=== PATIENT | male | born 1955 | race Caucasian/White ===

== ENCOUNTER 2018-03-23 22:58 | Inpatient (IN) | payer MEDICARE ==
[~2018-03-23] VITALS: Ht 182.9 cm; Wt 109.1 kg
--- NOTE | ~2018-03-23 | MORECARE ---
CASE MANAGEMENT DISCHARGE SUMMARY PATIENT: KYARA GARCIA UNIT: [id number] ADM DATE: 03/23/18 AGE: 62 : 53 SEX: M ROOM/BED: D.2104 AUTHOR: ANUSHADOC PHYSICIAN: REFERRING PHYSICIAN: TONIA CALIX MD DATE OF SERVICE: 03/27/18 Discharge Plan Patient Name: KYARA GARCIA Facility: [facility]:[place] : 1955 Planned Disposition: Home Anticipated Discharge Date: 03/27/18 Discharge Date: Expected LOS: 4 Initial Reviewer: [email or web address] Initial Review Date: 03/25/2018 Generated: 03/27/18 12:18 pm Comments DCP- Discharge Planning Updated by [email or web address]: Silva Arambula on 03/25/18 7:[address] Patient Name: KYARA GARCIA Admission Status: ER Accout number: [id number] Admission Date: 03-23-2018 : 1955 Admission Diagnosis: Attending: TONIA CALIX Current LOS: 2 Anticipated DC Date: 03-27-2018 Planned Disposition: Home Primary Insurance: MEDICARE A & B Discharge Planning Comments: CM MET WITH PATIENT REGARDING D/C NEEDS AND PLANS. PATIENT STATED HE LIVES ALONE AND HIS FRIEND (JOSE ALEJANDRO RUCKER) HELPS HIM IF NEEDED AND WILL DRIVE HIM HOME AT DISCHARGE. PATIENT STATED THERE IS A RAMP TO ENTER HIS HOME AND NO STAIRS INSIDE. PATIENT STATED HE IS INDEPENDENT WITH HIS CARE AND HAS NO DME AT HOME. PATIENTS PCP IS DR. MANINDER AGARWAL IN [place] AND USES [facility] IN [place]. PATIENT REFUSED HOME HEALTH AT THIS TIME. CM WILL CONTINUE TO FOLLOW PATIENT WITH D/C NEEDS AND PLANS. IMM SERVED PCP DR. MANINDER AGARWAL ([place]) [facility] ([place]) JOSE ALEJANDRO RUCKER (FRIEND) [phone] Computer Education Teacher: Silva Arambula DCPIA - Discharge Planning Initial Assessment Updated by [email or web address]: Silva Arambula on 03/25/18 8:44 am * Is the patient Alert and Oriented? Yes * How many steps to enter\exit or inside your home? ramp * PCP DR. MANINDER AGARWAL ([place]) * Pharmacy [facility] ([place]) * Preadmission Environment Home Alone * ADLs Independent * Equipment None * List name and contact numbers for known caregivers / representatives who currently or will assist patient after discharge: JOSE ALEJANDRO RUCKER (FRIEND) [phone] * Verbal permission to speak to the caregivers and representatives has been obtained from the patient. Yes * Community resources currently utilized None * Additional services required to return to the preadmission environment? Yes * Can the patient safely return to the preadmission environment? Yes * Has this patient been hospitalized within the prior 30 days at any hospital? No Coverage Notice Reviewer: [id number] Leobardo Arambula Notice Issued Date-Time: 03/25/2018 7:46 Notice Type: IM Discharge Notice Notice Delivered To: Patient Relationship to Patient: Sanitation Officer Name: Delivery Method: HAND - Hand Delivered Eulalia Days: Prior Verbal Notification: Recipient Understood Notice: Yes Recipient Signature: Yes Med Rec Note Co-signed by Attending: Coverage Notice Comment: Last DP export: 03/25/18 7:49 a Patient Name: KYARA GARCIA Page [id number] at 1118 All edits/amendments must be made on the electronic document DICTATION DATE: 03/27/18 1117 TIN WORKER: SHERRY 03/27/18 1117 RPT#: [id number] DC DATE: STATUS: ADM IN [facility] [address] [place] [address] END OF REPORT
--- NOTE | ~2018-03-23 | HEMODYNAMI ---
PATIENT:KYARA GARCIA MEDICAL RECORD: [id number] : 53 LOCATION:[facility].2104 ADMISSION DATE: 03/23/18 Generatedon:03/25/201810:55 Patient name: KYARA GARCIA Patient #: [id number] SSN: : 1955 Date of study: 03/25/2018 Page: Of Hemodynamic Procedure Report Patient Data Patient Demographics Procedure consent was obtained First Name: KYARA Gender: Male Last Name: RADHA : 1955 Middle Initial: DENNIS Age: 62 year(s) Patient #: [id number] Race: Unknown Additional ID: [id number] Contact details Address: [address] [place] [address] State: [place] City: [place] Zip code: [address] Past Medical History Allergies Allergen Reaction Date Comments Reported Bactrim 03/25/2018 Admission Admission Data Admission Date: 03/23/2018 Admission Time: 23:35 Room #: D2104 Height (in.): 71.65 BSA: 2.21 (m2) Height (cm.): 182 BMI: 30.19 (kg/m2) Weight (lbs.): 220.46 Weight (kg.): 100 Procedure Procedure Types Cath Procedure Diagnostic Procedure Sedation Charges Moderate Sedation up to 15 minutes PCI Procedure Coronary Stent Coronary Stent Initial Coronary Stent Additional Procedure Description Procedure Date Procedure Date: 03/25/2018 Procedure Start Time: 10:37 Procedure End Time: 10:54 Procedure Staff Name Function Diego Olivares MD Performing Physician Alexa Grigsby RT Monitor Rosalba Chan RN Nurse Salomón Ortega RT Scrub Procedure Data Cath Procedure Fluoroscopy Diagnostic fluoroscopy Total fluoroscopy Time: 4.1 time: 4.1 min min Diagnostic fluoroscopy Total fluoroscopy dose: 478 dose: 478 mGy mGy Contrast Material Contrast Material Type Amount (ml) Isovue 300 109 Entry Location Entry Primary Successful Side Size Upsize Upsize Entry Closure Succes sful Closure Location (Fr) 1 (Fr) 2 (Fr) Remarks Device Remarks Femoral Right 6 Fr Exoseal artery Short Estimated blood loss: 10 ml Procedure Complications No complications Procedure Medications Medication Administration Route Dosage Oxygen etCO2 Nasal cannula 2 l/min Lidocaine 2% added to field 20 Heparin Flush Bag added to field 2 bags (1000units/500ml NS) 0.9% NaCl I.V. 100 ml/hr Versed I.V. 1 mg Fentanyl I.V. 50 mcg Heparin Bolus I.V. 4000 units Versed I.V. 1 mg Fentanyl I.V. 50 mcg Fentanyl I.V. 25 mcg Hemodynamics Rest BSA: 2.21 (m2) O2 Consumption: Estimated: 262.65 (ml/min) O2 Consumption indexed : Estimated:118.85 (ml/min/m) Heart Rate: 75 (bpm) Snapshots Pre Cath Intra NCS Post Cath Vital Signs Time Heart Resp SPO2 etCO2 NIBP (mmHg) Rhythm Pain Sedation Rate (ipm) (%) (mmHg) Status Level (bpm) 10:16:29 72 15 97 29.2 138/78(116) NSR 0 (11) 10(A) , No pain 10:20:55 72 19 94 28.5 134/73(115) NSR 0 (11) 10(A) , No pain 10:25:21 71 17 99 24 134/69(106) NSR 0 (11) 10(A) , No pain 10:29:50 66 15 98 21.7 126/68(95) NSR 0 (11) 10(A) , No pain 10:34:12 67 15 96 18 131/67(98) NSR 0 (11) 10(A) , No pain 10:38:32 66 12 97 21 127/74(95) NSR 0 (11) 9(A) , No pain 10:42:54 68 13 96 29 127/71(101) NSR 0 (11) 9(A) , No pain 10:47:12 68 13 97 27 124/81(106) NSR 0 (11) 9(A) , No pain 10:51:28 68 15 98 17.2 138/84(119) NSR 0 (11) 10(A) , No pain Medications Time Medication Route Dose Verified Delivered Reason Notes Effectiveness by by 10:24:49 Oxygen etCO2 2 Diego Navarrete used for Nasal l/min Marshall Chan repack room worker cannula 10:24:57 Lidocaine 2% added 20ml Diego Cortez for local to vial Marshall Olivares MD anesthetic field 10:25:03 Heparin Flush added 2 Diegodivya Cortez used for Bag to bags Marshall Olivares MD procedure (1000units/500ml field NS) 10:25:13 0.9% NaCl I.V. 100 Diegodivya Navarrete Per physician ml/hr Marshall Chan RN 10:34:58 Versed I.V. 1 mg Diego Hoganie for sedation Marshall Chan RN 10:35:03 Fentanyl I.V. 50 Diego Buffie for sedation mcg Marshall Chan RN 10:38:30 Heparin Bolus I.V. 4000 Diego Buffie for VERIF IED units Marshall Chan RN anticoagulation WITH DR OLIVARES 10:41:46 Versed I.V. 1 mg Diego Buffie for sedation Marshall Chan RN 10:41:50 Fentanyl I.V. 50 Diego Hoganie for sedation mcg Marshall Chan RN 10:45:19 Fentanyl I.V. 25 Diego Hoganie for sedation mcg Marshall Chan RN Procedure Log Time Note 10:00:07 Rosalba Chan RN sent for patient. Start room use. 10:02:44 Patient Height : 71.65 inches 10:02:44 Patient Weight : 220.46 lbs 10:03:50 Signed procedure consent form obtained from patient. 10:03:53 Diagnostic Cath status Elective 10:03:54 Time tracking: Regular hours (M-F 7:00 - 5:00) 10:04:02 Plan of Care:Hemodynamics will remain stable., Cardiac rhythm will remain stable., Comfort level will be maintained., Respiratory function will remain adequate., Patient/ family verbilizes understanding of procedure., Procedure tolerated without complication., Recovers from procedure without complications.. 10:09:50 Patient received from Med II to CCL 3 Alert and oriented. Tansferred to table in Supine position. 10:09:51 Warm blankets applied, and ari hugger turned on for patient comfort. 10:09:52 Correct patient and procedure confirmed by team. 10:09:52 ECG and BP/O2 sat monitors applied to patient. 10:15:10 Vital chart was started 10:17:43 Baseline sample Acquired. 10:17:47 Rhythm: sinus rhythm 10:17:48 Full Disclosure recording started 10:17:58 H&P Date Dictated: 03/23/2018 Within 30 days and on chart.. 10:17:59 Pre-procedure instructions explained to patient. 10:17:59 Pre-op teaching completed and patient verbalized understanding. 10:18:04 Family in patients room. 10:18:06 Patient NPO since Midnight. 10:18:11 Patient allergic to Bactrim 10:18:14 Is patient on blood thinner?Yes 10:18:16 ACC The patient was administered the following blood thiners within the last 24 hours: ACCPlavix 10:18:22 Patient diabetic? No. 10:18:24 Previous problem with sedation/anesthesia? No ? 10:18:25 Snore? Yes 10:18:27 Sleep apnea? Yes 10:18:28 Deviated septum? No 10:18:29 Opens mouth fully? Yes 10:18:30 Sticks out tongue? Yes 10:18:34 Airway obstruction? Yes COPD 10:18:38 Dentures? Yes TIGHT 10:18:41 Pre procedure: right dorsailis pedis pulse 2+ Normal; easily identifiable; not easily obliterated 10:18:51 IV patent on arrival in left forearm with 0.9% NaCl at [facility]. 10:19:10 Lab results completed and on chart. 10:19:14 Right groin area was prepped with chlora-prep and draped in sterile fashion 10:19:15 Alarms reviewed by R. N. 10:19:15 Sharps counted by scrub and verified by R.N. 10:23:08 Use device set CATH PACK 10:23:10 ACIST Syringe (55532) opened to sterile field. 10:23:10 ACIST Hand Control (07322) opened to sterile field. 10:23:11 ACIST Manifold (49060) opened to sterile field. 10:23:11 Medline Cath Pack ([id number]) opened to sterile field. 10:23:11 Bag Decanter (2002S) opened to sterile field. 10:23:12 DIAGNOSTIC WIRE .035 260cm J wire (593880) opened to sterile field. 10:23:29 CHOICE PT Extra Support 182cm wire ([id number]) opened to sterile field. 10:23:30 SHEATH 6FR [place] (VRC530) opened to sterile field. 10:23:30 INFLATOR Nicolas Ray (SV8238) opened to sterile field. 10:24:49 Oxygen 2 l/min etCO2 Nasal cannula was administered by Rosalba Chan RN; used for procedure; 10:24:57 Lidocaine 2% 20ml vial added to field was administered by Diego Olivares MD; for local anesthetic; 10:25:03 Heparin Flush Bag (1000units/500ml NS) 2 bags added to field was administered by Diego Olivares MD; used for procedure; 10:25:13 0.9% NaCl 100 ml/hr I.V. was administered by Rosalba Cahn RN; Per physician; 10:31:17 Zero performed for pressure channel P1 10:34:12 --------ALL STOP TIME OUT------ 10:34:12 Final Timeout: patient, procedure, and site verified with staff and physician. All members of the team are in agreement. 10:34:14 Right groin site verified by team. 10:34:16 Physical assessment completed. ASA score P 2 - A patient with mild systemic disease as per Diego Olivares MD. 10:34:21 Sedation plan: IV Moderate Sedation Medication:Versed, Fentanyl 10:34:58 Versed 1 mg I.V. was administered by Rosalba Chan RN; for sedation; 10:35:03 Fentanyl 50 mcg I.V. was administered by Rosalba Chan RN; for sedation; 10:37:21 Procedure started. 10:37:30 Local anesthetic to right femoral artery with Lidocaine 2% by Diego Olivares MD.INITIAL ACCESS ONLY 10:37:38 GUIDE 6FR XBLAD 4.0 catheter ([id number]) opened to sterile field. 10:38:07 A 6 Fr Short sheath was inserted into the Right Femoral artery 10:38:30 Heparin Bolus 4000 units I.V. was administered by Rosalba Chan RN; for anticoagulation; VERIFIED WITH DR OLIVARES 10:38:34 6 Fr XBLAD 4 guide catheter was inserted over the wire 10:39:29 CHOICE ES 182 wire advanced. 10:39:56 Wire advanced across lesion. 10:41:00 Place stent Inflation Number: 1 A INTEGRITY RX 4.0 x 15 stent ([id number]) was prepped and advanced across the Dist CX. The stent was deployed at 13 KEVIN for 0:10 (min:sec). 10:41:09 Stent catheter was removed intact over wire. 10:41:46 Versed 1 mg I.V. was administered by Rosalba Chan RN; for sedation; 10:41:50 Fentanyl 50 mcg I.V. was administered by Rosalba Chan RN; for sedation; 10:42:19 Wire removed. 10:42:21 Guide catheter removed. 10:42:25 GUIDE 6FR XBLAD 3.5 catheter ([id number]) opened to sterile field. 10:43:02 6 Fr XBLAD 3.5 guide catheter was inserted over the wire 10:44:35 CHOICE ES 182 wire advanced. 10:44:37 Wire advanced across lesion. 10:45:19 Fentanyl 25 mcg I.V. was administered by Rosalba Chan RN; for sedation; 10:46:42 Place stent Inflation Number: 1 A ROCIO RX 3.0 x 26 stent ([id number]) was prepped and advanced across the Mid LAD. The stent was deployed at 17 KEVIN for 0:10 (min:sec). 10:47:20 Inflation number: 2 The stent balloon was then re-inflated across the Mid LAD to 23 KEVIN for 0:10 (min:sec). 10:47:29 Stent catheter was removed intact over wire. 10:48:48 Place stent Inflation Number: 3 A ROCIO RX 2.75 x 18 stent ([id number]) was prepped and advanced across the Mid LAD. The stent was deployed at 17 KEVIN for 0:10 (min:sec). 10:48:58 Stent catheter was removed intact over wire. 10:48:58 Wire removed. 10:48:59 Guide catheter removed. 10:49:07 EXOSEAL 6Fr (EX600) opened to sterile field. 10:49:16 Sheath removed intact; hemostasis achieved with Exoseal to the Right Femoral artery. 10:50:01 Procedure ended.(Physican Out) 10:51:04 Fluoroscopy time 04.10 minutes. 10:51:11 Flurop Dose total: 478 10:51:11 Fluoroscopy dose: 478 mGy 10:51:19 Contrast amount:Isovue 300 109ml. 10:51:21 Sharps counted by scrub and verified by R.N. 10:51:24 Post-op/insertion site Right Femoral artery dressed using a 4 x 4 and Tegaderm. 10:51:27 Post right femoral artery:stable, soft, clean and dry 10:51:30 Post-procedure physical assessment completed. ASA score P 2 - A patient with mild systemic disease as per Diego Olivares MD. 10:51:33 Post procedure rhythm: unchanged. 10:51:35 Estimated blood loss: 10 ml 10:51:37 Post procedure instruction explained to patient.Patient verbalizes understanding. 10:51:37 Patient needs reinforcement of post procedure teaching. 10:52:01 Procedure type changed to Cath procedure, Diagnostic procedure, Sedation Charges, Moderate Sedation up to 15 minutes, PCI procedure, Coronary Stent, Coronary Stent Initial, Coronary Stent Additional 10:53:59 Procedure and supply charges have been captured, reviewed, submitted and are correct. 10:54:02 Procedure Complication : No complications 10:54:04 Vital chart was stopped 10:54:04 See physician's report for complete and final results. 10:54:08 Report given to PCU. 10:54:10 Patient transfered to PCU with Bed. 10:54:12 Procedure ended. 10:54:12 Full Disclosure recording stopped 10:54:16 End room use (Document Last) Intervention Summary Intervention Notes Time ActionType Lesion and Equipment Used Action# Pressure Duration Attributes 10:41:00 Place stent Dist CX INTEGRITY RX 1 13 00:10 4.0 x 15 stent ([id number]) 10:46:42 Place stent Mid LAD ROCIO RX 3.0 x 1 17 00:10 26 stent ([id number]) 10:47:20 Reinflate Mid LAD ROCIO RX 3.0 x 2 23 00:10 stent 26 stent balloon ([id number]) 10:48:48 Place stent Mid LAD ROCIO RX 2.75 x 3 17 00:10 18 stent ([id number]) Device Usage Item Name Manufacture Quantity Catalog Number Hospital Part Current M inimal Lot# / Charge Number Stock Stock Serial# Code ACIST Syringe Acist 1 96988 556620 719021 527110 2 0 (85837) Medical Systems Inc ACIST Hand Acist 1 73773 164993 384715 662584 5 Control Medical (14195) Systems Inc ACIST Manifold Acist 1 29872 357397 447734 863499 5 (75599) Medical Systems Inc Medline Cath Medline 1 [id number] 789130 36245 881547 5 Pack ([id number]) Bag Decanter Microtek 1 2001S 986694 24346 112356 5 (2001S) Medical Inc. DIAGNOSTIC St [place] 1 770546 013352 204269 202583 3 0 WIRE .035 260cm J wire (859819) CHOICE PT [place] 1 [id number] 248360 521064 988041 5 Extra Support Scientific 182cm wire ([id number]) SHEATH 6FR Terumo 1 MYJ565 024784 016870 578069 4 0 [place] (RAY546) INFLATOR Merit Merit 1 TA8963 089333 617648 219965 1 5 Veritext (NI1085) GUIDE 6FR Cardinal 1 [id number] 742112 360361 519328 3 XBLAD 4.0 Health catheter (98921007) INTEGRITY RX Medtronic 1 [id number] 484086 682486 279496 5 [id number] 4.0 x 15 stent ([id number]) GUIDE 6FR Cardinal 1 [id number] 076965 507987 271479 1 0 XBLAD 3.5 Health catheter ([id number]) ROCIO RX 3.0 x Medtronic 1 [id number] 727102 8825393 284757 5 [id number] 26 stent ([id number]) ROCIO RX 2.75 x Medtronic 1 [id number] 812095 2656124 084353 5 [id number] 18 stent ([id number]) EXOSEAL 6Fr Cardinal 1 EX600 765341 189158 353738 1 0 (EX600) Health Signature Audit [place] Stage Time Signature Unsigned Intra-Procedure 03/25/2018 Alexa Grigsby 10:55:12 AM RT(R) Signatures Monitor : Alexa Grigsby Signature : RT Date : Time : [place] [id number] [place] [address]
--- NOTE | ~2018-03-23 | HEMODYNAMI ---
PATIENT:KYARA GARCIA MEDICAL RECORD: [id number] : 53 LOCATION:[facility] [id number] ADMISSION DATE: 03/23/18 Generatedon:03/24/201815:54 Patient name: KYARA GARCIA Patient #: [id number] SSN: : 1955 Date of study: 03/24/2018 Page: Of Hemodynamic Procedure Report Patient Data Patient Demographics Procedure consent was obtained First Name: KYARA Gender: Male Last Name: RADHA : 1955 Middle Initial: DENNIS Age: 62 year(s) Patient #: [id number] Race: Unknown Additional ID: [id number] Contact details Address: [address] [place] [address] State: [place] City: [place] Zip code: [address] Past Medical History Allergies: No known allergies Admission Admission Data Admission Date: 03/23/2018 Admission Time: 23:35 Room #: D.2104 Height (in.): 71.65 BSA: 2.21 (m2) Height (cm.): 182 BMI: 30.19 (kg/m2) Weight (lbs.): 220.46 Weight (kg.): 100 Procedure Procedure Types Cath Procedure Diagnostic Procedure [facility] w/Coronaries PCI Procedure Coronary Stent Coronary Stent Initial Procedure Description Procedure Date Procedure Date: 03/24/2018 Procedure Start Time: 15:42 Procedure End Time: 15:53 Procedure Staff Name Function Diego Olivares MD Performing Physician Maria G Jimenes RT Monitor Rosalba Chan RN Nurse Constanza Fuller RT Scrub Procedure Data Cath Procedure Fluoroscopy Diagnostic fluoroscopy Total fluoroscopy Time: 2.4 time: 2.4 min min Diagnostic fluoroscopy Total fluoroscopy dose: 749 dose: 749 mGy mGy Contrast Material Contrast Material Type Amount (ml) Isovue 300 69 Entry Location Entry Primary Successful Side Size Upsize Upsize Entry Closure Hodge ccessful Closure Location (Fr) 1 (Fr) 2 (Fr) Remarks Device Remarks Radial Right 6 Fr Mechanical artery Short Compression Estimated blood loss: 10 ml Diagnostic catheters Device Type Used For End Catheter Placement DIAGNOSTIC Dickinson 110cm 5 Procedure Fr catheter ([id number]) Procedure Complications No complications Procedure Medications Medication Administration Route Dosage Oxygen etCO2 Nasal cannula 2 l/min Lidocaine 2% added to field 20 Heparin Flush Bag added to field 2 bags (1000units/500ml NS) 0.9% NaCl I.V. 100 ml/hr Radial Cocktail added to field 1 syringe (Verapomil 2mg/Nitro 400mcg/Heparin 1500units) Radial Cocktail I.A. 1 syringe (Verapomil 2mg/Nitro 400mcg/Heparin 1500units) Heparin Bolus I.V. 4000 units Versed I.V. 1 mg Fentanyl I.V. 50 mcg Hemodynamics Rest BSA: 2.21 (m2) O2 Consumption: Estimated: 259.03 (ml/min) O2 Consumption indexed : Estimated:117.21 (ml/min/m) Heart Rate: 71 (bpm) Pressure Samples Time Site Value (mmHg) Purpose Heart Use Rate(bpm) 15:44 LV 126/82,96 Snapshot 71 15:44 AO 131/72(95) Pullback 69 15:44 LV 143/14,24 Pullback 69 Gradients Valve Time Site 1 Site 2 Mean SEP/DFP Peak To Heart Use (mmHg) (sec/min) Peak Rate (mmHg) (bpm) Aortic 15:44 LV AO 5 18 12 69 143/14,24 131/72(95) Calculations Valve P-P Mean Valve Index Valve Source Name Gradient Area Flow (cm2) Aortic 12 5 12 5 Snapshots Pre Cath Intra NCS Post Cath Vital Signs Time Heart Resp SPO2 etCO2 NIBP (mmHg) Rhythm Pain Sedation Rate (ipm) (%) (mmHg) Status Level (bpm) 15:23:42 71 22 97 25.2 158/89(128) NSR 0 (11) 10(A) , No pain 15:27:59 67 20 96 26.7 151/88(124) NSR 0 (11) 10(A) , No pain 15:32:21 67 17 98 33.4 156/82(131) NSR 0 (11) 10(A) , No pain 15:36:39 67 11 95 27.4 146/85(118) NSR 0 (11) 10(A) , No pain 15:40:59 67 10 94 25.9 149/86(121) NSR 0 (11) 9(A) , No pain 15:45:15 67 12 92 26.7 144/83(111) NSR 0 (11) 9(A) , No pain 15:49:33 67 11 93 28.9 146/86(114) NSR 0 (11) 10(A) , No pain Medications Time Medication Route Dose Verified Delivered Reason Not es Effectiveness by by 15:25:52 Oxygen etCO2 2 l/min Diego Navarrete used for Nasal Marshall Chan RN procedure cannula 15:25:59 Lidocaine 2% added 20ml Diego Cortez for local to vial Marshall Olivares MD anesthetic field 15:26:06 Heparin Flush added 2 bags Diego Cortez used for Bag to Marshall Olivares MD procedure (1000units/500ml field NS) 15:26:15 0.9% NaCl I.V. 100 Diego Navarrete Per physician ml/hr Marshall Chan RN 15:29:10 Radial Cocktail added 1 Diego Navarrete used for (Verapomil to syringe Marshall Chan RN procedure 2mg/Nitro field 400mcg/Heparin 1500units) 15:44:08 Radial Cocktail I.A. 1 Diego Cortez for (Verapomil syringe Marshall Olivares MD vasodilation 2mg/Nitro 400mcg/Heparin 1500units) 15:47:46 Heparin Bolus I.V. 4000 Diego Navarrete for units Marshall Chan RN anticoagulation 15:49:32 Versed I.V. 1 mg Diego Navarrete for sedation Marshall Chan RN 15:49:51 Fentanyl I.V. 50 mcg Diego Navarrete for sedation Marshall Chan RN Procedure Log Time Note 15:10:19 Patient Height : 71.65 inches 15:10:23 Patient Weight : 220.46 lbs 15:11:02 Diagnostic Cath status Elective 15:11:04 Rosalba Chan RN sent for patient. Start room use. 15:11:06 Time tracking: Regular hours (M-F 7:00 - 5:00) 15:11:26 Plan of Care:Hemodynamics will remain stable., Cardiac rhythm will remain stable., Comfort level will be maintained., Respiratory function will remain adequate., Patient/ family verbilizes understanding of procedure., Procedure tolerated without complication., Recovers from procedure without complications.. 15:11:32 Patient received from Med II to CCL 2 Alert and oriented. Tansferred to table in Supine position. 15:11:33 Warm blankets applied, and ari hugger turned on for patient comfort. 15:11:33 Correct patient and procedure confirmed by team. 15:11:35 Signed procedure consent form obtained from patient. 15:11:54 H&P Date Dictated: 03/23/2018 Within 30 days and on chart., H&P Addendum completed by physician on day of procedure. (MUST COMPLETE FOR ALL OUTPATIENTS). 15:12:00 Family in patients room. 15:12:01 Patient NPO since Midnight. 15:12:14 Patient allergic to No known allergies 15:12:16 Is the patient allergic to Iodine/contrast media? No. 15:17:00 ECG and BP/O2 sat monitors applied to patient. 15:17:16 Is patient on blood thinner?Yes 15:17:18 Patient diabetic? No. 15:17:22 Snore? Yes 15:17:24 Sleep apnea? No 15:17:29 Airway obstruction? Yes COPD 15:17:39 Dentures? No out 15:17:44 Patient pain scale 0/10 ?. 15:18:00 IV patent on arrival in left wrist with 0.9% NaCl at O. 15:18:07 Lab results completed and on chart. 15:18:14 Right Radial & Right Groin area was prepped with chlora-prep and draped in sterile fashion 15:18:17 Alarms reviewed by R. N. 15:18:18 Sharps counted by scrub and verified by R.N. 15:18:19 Physician paged 15:22:32 Vital chart was started 15:22:40 Baseline sample Acquired. 15:22:44 Rhythm: sinus rhythm 15:22:47 Full Disclosure recording started 15:25:52 Oxygen 2 l/min etCO2 Nasal cannula was administered by Rosalba Chan RN; used for procedure; 15:25:59 Lidocaine 2% 20ml vial added to field was administered by Diego Olivares MD; for local anesthetic; 15:26:06 Heparin Flush Bag (1000units/500ml NS) 2 bags added to field was administered by Diego Olivares MD; used for procedure; 15:26:15 0.9% NaCl 100 ml/hr I.V. was administered by Rosalba Chan RN; Per physician; 15:29:10 Radial Cocktail (Verapomil 2mg/Nitro 400mcg/Heparin 1500units) 1 syringe added to field was administered by Rosalba Chan RN; used for procedure; 15:40:22 Physician arrived 15:40:23 --------ALL STOP TIME OUT------ 15:40:25 Final Timeout: patient, procedure, and site verified with staff and physician. All members of the team are in agreement. 15:40:47 Right Radial & Right Groin site verified by team. 15:40:52 Physical assessment completed. ASA score P 2 - A patient with mild systemic disease as per Diego Olivares MD. 15:40:56 Sedation plan: IV Moderate Sedation Medication:Versed, Fentanyl 15:41:19 Use device set Radial Dx or PCI 15:41:21 ACIST Syringe (10778) opened to sterile field. 15:41:21 Medline Cath Pack ([id number]) opened to sterile field. 15:41:22 Bag Decanter (2002S) opened to sterile field. 15:41:22 DIAGNOSTIC WIRE .035 260cm J wire (087485) opened to sterile field. 15:41:23 ACIST Hand Control (18714) opened to sterile field. 15:41:23 ACIST Manifold (21676) opened to sterile field. 15:41:24 Tegaderm 4 x 4 (1626W) opened to sterile field. 15:41:27 MBrace Wrist Support (896943136) opened to sterile field. 15:41:32 NEEDLE Cook 21G 4cm Radial (P96552) opened to sterile field. 15:41:38 SHEATH 6Fr Prelude Radial ([id number]) opened to sterile field. 15:41:42 Procedure started. 15:42:16 Local anesthetic to right radial artery with Lidocaine 2% by Diego Olivares MD.INITIAL ACCESS ONLY 15:42:47 A 6 Fr Short sheath was inserted into the Right Radial artery 15:43:28 A DIAGNOSTIC Dickinson 110cm 5 Fr catheter (191460) was advanced over the wire and used for Procedure. 15:43:37 LV angiography performed. 15:44:08 Radial Cocktail (Verapomil 2mg/Nitro 400mcg/Heparin 1500units) 1 syringe I.A. was administered by Diego Olivares MD; for vasodilation; 15:44:42 EF : 20 % 15:44:50 LCA angiography performed. 15:45:19 RCA angiography performed. 15:46:56 Catheter removed. 15:46:59 Proceeding to intervention. 15:47:06 6 Fr ar2sh guide catheter was inserted over the wire 15:47:18 choice ex wire advanced. 15:47:30 Wire advanced across lesion. 15:47:37 INFLATOR Merit BasixCompak (BO7007) opened to sterile field. 15:47:38 CHOICE PT Extra Support 182cm wire ([id number]) opened to sterile field. 15:47:40 GUIDE 6FR AR 2.0 SH catheter ([id number]) opened to sterile field. 15:47:46 Heparin Bolus 4000 units I.V. was administered by Rosalba Chan RN; for anticoagulation; 15:49:09 Place stent Inflation Number: 1 A ROCIO RX 2.25 x 15 stent ([id number]) was prepped and advanced across the Mid RCA. The stent was deployed at 13 KEVIN for 0:08 (min:sec). 15:49:32 Versed 1 mg I.V. was administered by Rosalba Chan RN; for sedation; 15:49:43 TR BAND Large ([id number]) opened to sterile field. 15:49:49 Wire removed. 15:49:51 Fentanyl 50 mcg I.V. was administered by Rosalba Chan RN; for sedation; 15:50:30 Guide catheter removed. 15:50:41 Sheath removed intact; hemostasis achieved with Mechanical Compression to the Right Radial artery. 15:50:44 Procedure ended.(Physican Out) 15:51:04 Fluoroscopy time 02.40 minutes. 15:51:08 Fluoroscopy dose: 749 mGy 15:51:08 Flurop Dose total: 749 15:51:11 Contrast amount:Isovue 300 69ml. 15:51:13 Sharps counted by scrub and verified by R.N. 15:51:16 TR band inflated with 13cc of air. 15:51:17 Insertion/operative site no bleeding no hematoma. 15:51:20 Post Procedure Pulses reassessed and unchanged 15:51:24 Post-procedure physical assessment completed. ASA score P 2 - A patient with mild systemic disease as per Diego Olivares MD. 15:51:27 Post procedure rhythm: unchanged. 15:51:37 Estimated blood loss: 10 ml 15:51:40 Post procedure instruction explained to patient.Patient verbalizes understanding. 15:51:56 Procedure type changed to Cath procedure, Diagnostic procedure, LHC, C w/Coronaries, PCI procedure, Coronary Stent, Coronary Stent Initial 15:52:25 Procedure and supply charges have been captured, reviewed, submitted and are correct. 15:52:35 Procedure Complication : No complications 15:52:42 Vital chart was stopped 15:52:50 See physician's report for complete and final results. 15:53:08 Report given to [facility]. 15:53:13 Patient transfered to [facility] with Bed. 15:53:16 Procedure ended. 15:53:16 Full Disclosure recording stopped 15:53:19 End room use (Document Last) Intervention Summary Intervention Notes Time ActionType Lesion and Equipment Used Action# Pressure Duration Attributes 15:49:09 Place stent Mid RCA ROCIO RX 2.25 x 1 13 00:08 15 stent ([id number]) Device Usage Item Name Manufacture Quantity Catalog Number Hospital Part Current Minimal Lot# / Charge Number Stock Stock Serial# Code ACIST Syringe Acist 1 90172 525703 881008 032790 20 (79554) Medical Systems Inc Medline Cath Medline 1 [id number] 075445 99106 295319 5 Pack ([id number]) Bag Decanter Microtek 1 2001S 717466 29788 622496 5 (2001S) Medical Inc. DIAGNOSTIC WIRE [place] 1 391648 856154 260045 805447 30 .035 260cm J wire (173079) ACIST Hand Acist 1 09940 006337 985469 592677 5 Control (25172) Medical Systems Inc ACIST Manifold Acist 1 90489 544025 525621 456991 5 (97267) Medical Systems Inc Tegaderm 4 x 4 3M 1 1626W 338954 593104 284266 5 (1626W) MBrace Wrist Advanced 1 140-0250-00 853538 28924 557448 5 Support Vascular ([id number]) Dynamics NEEDLE Cook 21G Shyp Medical 1 Y87812 168596 413120 643455 5 4cm Radial (P86887) SHEATH 6Fr Merit 1 [id number] 001972 145183 369912 5 Prelude Radial Medical ([id number]) DIAGNOSTIC Terumo 1 40-1563 744031 308153 353473 5 Dickinson 110cm 5 Fr catheter (908808) INFLATOR Merit Merit 1 AA0599 803815 927422 387462 15 [facility] (IJ0010) CHOICE PT Extra [place] 1 [id number] 790723 952525 522574 5 Support 182cm Scientific wire ([id number]) GUIDE 6FR AR Medtronic 1 [id number] 489745 21141 168321 1 2.0 SH catheter ([id number]) ROCIO RX 2.25 x Medtronic 1 [id number] 185594 2321494 635221 5 [id number] 15 stent ([id number]) TR BAND Large Terumo 1 [id number] 826854 091607 584533 40 ([id number]) Signature Audit [place] Stage Time Signature Unsigned Intra-Procedure 03/24/2018 Maria G Jimenes 3:54:38 PM RT(R) Signatures Monitor : Maria G Jimenes Signature : RT Date : Time : [place] [address] [place] [address]
--- NOTE | ~2018-03-23 | MORECARE ---
CASE MANAGEMENT DISCHARGE SUMMARY PATIENT: KYARA GARCIA UNIT: [id number] ADM DATE: 03/23/18 AGE: 62 : 54 SEX: M ROOM/BED: D.2104 AUTHOR: ANUSHA,DOC PHYSICIAN: REFERRING PHYSICIAN: TONIA CALIX MD DATE OF SERVICE: 03/25/18 Discharge Plan Patient Name: KYARA GARCIA Facility: [facility]:[place] : 1955 Planned Disposition: Home Anticipated Discharge Date: 03/27/18 Discharge Date: Expected LOS: 4 Initial Reviewer: [email or web address] Initial Review Date: 03/25/2018 Generated: 03/25/18 9:49 am Comments DCP- Discharge Planning Updated by [email or web address]: Silva Arambula on 03/25/18 7:[address] Patient Name: KYARA GARCIA Admission Status: ER Accout number: [id number] Admission Date: 03-23-2018 : 1955 Admission Diagnosis: Attending: TONIA CALIX Current LOS: 2 Anticipated DC Date: 03-27-2018 Planned Disposition: Home Primary Insurance: MEDICARE A & B Discharge Planning Comments: CM MET WITH PATIENT REGARDING D/C NEEDS AND PLANS. PATIENT STATED HE LIVES ALONE AND HIS FRIEND (JOSE ALEJANDRO RUCKER) HELPS HIM IF NEEDED AND WILL DRIVE HIM HOME AT DISCHARGE. PATIENT STATED THERE IS A RAMP TO ENTER HIS HOME AND NO STAIRS INSIDE. PATIENT STATED HE IS INDEPENDENT WITH HIS CARE AND HAS NO DME AT HOME. PATIENTS PCP IS DR. MANINDER AGARWAL IN [place] AND USES [facility] IN [place]. PATIENT REFUSED HOME HEALTH AT THIS TIME. CM WILL CONTINUE TO FOLLOW PATIENT WITH D/C NEEDS AND PLANS. IMM SERVED PCP DR. MANINDER AGARWAL ([place]) [facility] ([place]) JOSE ALEJANDRO RUCKER (FRIEND) [phone] Sagger Maker: Silva Arambula DCPIA - Discharge Planning Initial Assessment Updated by [email or web address]: Silva Arambula on 03/25/18 8:44 am * Is the patient Alert and Oriented? Yes * How many steps to enter\exit or inside your home? ramp * PCP DR. MANINDER AGARWAL ([place]) * Pharmacy [facility] ([place]) * Preadmission Environment Home Alone * ADLs Independent * Equipment None * List name and contact numbers for known caregivers / representatives who currently or will assist patient after discharge: JOSE ALEJANDRO RUCKER (FRIEND) [phone] * Verbal permission to speak to the caregivers and representatives has been obtained from the patient. Yes * Community resources currently utilized None * Additional services required to return to the preadmission environment? Yes * Can the patient safely return to the preadmission environment? Yes * Has this patient been hospitalized within the prior 30 days at any hospital? No Coverage Notice Reviewer: [email or web address] Leobardo Arambula Notice Issued Date-Time: 03/25/2018 7:46 Notice Type: IM Discharge Notice Notice Delivered To: Patient Relationship to Patient: Product Evangelist Name: Delivery Method: HAND - Hand Delivered [place] Days: Prior Verbal Notification: Recipient Understood Notice: Yes Recipient Signature: Yes Med Rec Note Co-signed by Attending: Coverage Notice Comment: Last DP export: 03/25/18 7:43 a Patient Name: KYARA GARCIA Page 25708 at 0850 All edits/amendments must be made on the electronic document DICTATION DATE: 03/25/18848 SLAT BASKET MAKER HELPER MACHINE: SHERRY 03/25/18848 RPT#: [id number] DC DATE: STATUS: ADM IN [facility] [address] [place] [address] END OF REPORT
--- NOTE | ~2018-03-23 | OP ---
PATIENT NAME: KYARA GARCIA MEDICAL RECORD: [id number] :53 LOCATION:D.M2 D.2104 ADMISSION DATE:03/23/18 SURGEON: ARNOLDO LANTIGUA MD DATE OF OPERATION: 03/25/2018 PROCEDURES: 1. PTCA stent LAD. 2. PTCA stent left circumflex. 3. Selective coronary angiography. INDICATION: Angina and coronary artery disease. PROCEDURE IN DETAIL: After informed consent was obtained and after a detailed description of the risks, benefits as well as alternative therapies, the patient elected to proceed with angiogram and angioplasty. The right femoral area was prepped and draped in normal sterile fashion. Right femoral artery was cannulated via modified Seldinger technique with placement of 6-Tristanian sheath. All catheters exchanged through this sheath. FINDINGS: The left circumflex had 80% stenosis. The LAD had a 95% stenosis. Left circumflex was addressed with a 4.0 x 15 mm Integrity stent. The LAD with a 3.0 x 26 mm Lyman as well as a 2.75 x 18 mm Lyman. Result was 0% residual throughout. OVERALL IMPRESSION: Successful PTCA stent of the LAD and circumflex going from 80% to 95% initial stenosis to 0% residual. TRANSINT:[id number] Voice Confirmation ID: [id number] DOCUMENT ID: [id number] ARNOLDO LANTIGUA MD at 1059 CC: [id number] DICTATION DATE: 03/25/18 1053 MACHINE EGG WASHER: 03/25/18 1117 DIS IN 03/27/18 [place] [address]
--- NOTE | ~2018-03-23 | MORECARE ---
CASE MANAGEMENT DISCHARGE SUMMARY PATIENT: KYARA GARCIA DENNIS UNIT: [id number] ADM DATE: 03/23/18 AGE: 62 : 54 SEX: M ROOM/BED: D.2104 AUTHOR: MAURICIO TAVARES PHYSICIAN: REFERRING PHYSICIAN: TONIA CALIX MD DATE OF SERVICE: 03/25/18 Discharge Plan Patient Name: KYARA GARCIA [facility] [facility] 1955 Planned Disposition: Home Anticipated Discharge Date: 03/27/18 Discharge Date: Expected LOS: 4 Initial Reviewer: [email or web address] Initial Review Date: 03/25/2018 Generated: 03/25/18 9:43 am Patient Name: KYARA GARCIA Page 31343 at 0843 All edits/amendments must be made on the electronic document DICTATION DATE: 03/25/1843 DRUG INSPECTOR: SHERRY 03/25/18 0843 RPT#: [id number] DC DATE: STATUS: ADM IN [facility] [address] [place] [address] END OF REPORT
--- NOTE | ~2018-03-23 | EC ---
PATIENT:KYARA GARCIA DATE OF SERVICE: 03/23/18 SEX: M MEDICAL RECORD: [id number] DATE OF : 53 LOCATION:D.M2 D.210 AGE OF PATIENT: 62 ADMISSION DATE: 03/23/18 REFERRING PHYSICIAN: INTERPRETING PHYSICIAN: ARNOLDO OLIVARES MD ECHOCARDIOGRAM REPORT ECHO CHARGES 4 ECHO COMPLETE Date: 03/24/18 CLINICAL DIAGNOSIS: SOB, ECHOCARDIOGRAPHIC MEASUREMENTS (adult normal given) AC root (d.<3.7cm) 3.8 cm LV Septum d (<1.2 cm> 1.2 cm Valve Excursion 1.2 cm LV Septum (systole) 1.3 cm Left Atria (s.<4.0cm> 4.1 cm LVPW d(<1.2cm) 1.3 cm RV (d.<2.3cm) 2.9 cm LVPW (sytole) 1.6 cm LV diastole(<5.6CM) 7.1 cm MV E-F(>70mm/sec) cm LV systole 6.6 cm LVOT Diameter 2.2 cm MV exc.(>10mm) cm Est.ejection fraction (50-75%) % DOPPLER: LVIT cm/sec A 25 cm/sec E 84 cm/sec LA cm/sec RVSP 17.2 mmHg LVOT 95 cm/sec AOP1/2T m/s Asc. Ao 112 cm/sec RVOT 58 cm/sec RA cm/sec PA 65 cm/sec AV Gradient Peak 5.0 mmHg AV Mean 3.0 mmHg AV Area 3.6 cm MV Gradient Peak 6.2 mmHg MV Mean 2.1 mmHg MV Area cm COMMENTS: Weaver Dobby Loom: Troy [facility] Website/Blog Editor: 1 Dr. Olivares TAPE# PACS Pericardial Effusion N DATE OF SERVICE: 03/24/2018 FINDINGS: 1. Left ventricular chamber size is dilated. Left ventricular systolic function is markedly reduced. Overall ejection fraction is in 25% range. 2. Left atrium is enlarged at 4.1 cm. Right atrium and right ventricle chamber sizes are moderately dilated. 3. Valvular structures have normal structure and motion. 4. Doppler interrogation reveals mild mitral regurgitation and mild tricuspid regurgitation. No other valvular insufficiency or stenosis. Pulmonary systolic ECHOCARDIOGRAM REPORT [id number] KYARA GARCIA pressure is preserved at 18 mmHg. 5. No evidence of pericardial effusion or left ventricular thrombus. TRANSINT:[id number] Voice Confirmation ID: [id number] DOCUMENT ID: [id number] ARNOLDO OLIVARES MD at 1059 CC: [id number] DICTATION DATE: 03/24/181840 SILVER CLEANER: 03/24/182100 DIS IN 03/27/18 [place] [id number] [place] [id number]
[2018-03-23 22:35] VITALS: BP 115/69
[2018-03-23 23:00] VITALS: BP 115/77
[2018-03-23 23:15] VITALS: BP 151/88
[2018-03-23 23:30] VITALS: BP 152/93
[2018-03-23 23:43] VITALS: BP 115/56
[2018-03-23 23:45] VITALS: BP 157/93
[2018-03-24] VITALS (14 sets, daily range): BP systolic 113–167; BP diastolic 62–90; Ht 182.9 cm; Wt 109.1 kg
[2018-03-24] MEDS ORDERED: DILANTIN100 MG PO (01:12)
[2018-03-24 09:40] LABS: BASOPHILS 0.3 % (0-2); EOSINOPHILS 0.1 % (0-7); HEMATOCRIT 33.5 % (42.0-54.0); HEMOGLOBIN 10.7 g/dL (13.5-17.5); IMMATURE GRANULOCYTES 0.3 % (0-5); LYMPHOCYTES 16.1 % (15-50); MCH 28.8 pg (26.0-34.0); MCHC 31.9 g/dL (31.0-37.0); MCV 90.3 fL (80.0-100.0); MEAN PLATELET VOLUME 9.4 fL (7.4-10.4); MONOCYTES 7.8 % (2-11); NEUTROPHILS 75.4 % (40-80); PLATELET COUNT 340 10x3/uL (130-400); RBC 3.71 10x6/uL (4.20-6.10); RDW 14.7 % (11.5-14.5); WBC 11.3 10x3/uL (4.8-10.8)
[2018-03-24 09:46] LABS: ANION GAP 17.2 mmol/L (8-16); CALCIUM 8.8 mg/dL (8.5-10.1); CARBON DIOXIDE 25.8 mmol/L (21.0-32.0); CREATININE - SERUM 1.2 mg/dL (0.6-1.3)
[2018-03-24 12:05] LABS: % SATURATION 10 % (15-55); IRON 30 ug/dl (35-150); TOTAL IRON BIND CAPACITY 274 ug/dl (260-445); UNSAT IRON BIND CAPACITY 244 ug/dl (150-375)
[2018-03-24] MEDS ORDERED: FUROSEMIDE20 MG PO (14:57)
[2018-03-24] MEDS ORDERED: NORVASC10 MG PO (14:58)
[2018-03-24 21:10] LABS: APPEARANCE CLEAR (CLEAR); BILIRUBIN NEGATIVE (NEGATIVE); COLOR YELLOW (YELLOW); GLUCOSE NEGATIVE (NEGATIVE); KETONE NEGATIVE (NEGATIVE); NITRITE NEGATIVE (NEGATIVE); PROTEIN NEGATIVE (NEGATIVE); UROBILINOGEN NORMAL (NORMAL)
[2018-03-24 21:11] LABS: BACTERIA FEW /hpf (NONE SEEN); RED CELLS - URINE 0-5 /hpf (0-5); WHITE CELLS - URINE 0-5 /hpf (0-5)
[2018-03-25] VITALS (12 sets, daily range): BP systolic 120–140; BP diastolic 68–79
[2018-03-25 06:04] LABS: BASOPHILS 0.5 % (0-2); EOSINOPHILS 1.3 % (0-7); HEMATOCRIT 32.2 % (42.0-54.0); HEMOGLOBIN 10.2 g/dL (13.5-17.5); IMMATURE GRANULOCYTES 0.2 % (0-5); LYMPHOCYTES 21.7 % (15-50); MCH 28.6 pg (26.0-34.0); MCHC 31.7 g/dL (31.0-37.0); MCV 90.2 fL (80.0-100.0); MEAN PLATELET VOLUME 9.2 fL (7.4-10.4); MONOCYTES 10.2 % (2-11); NEUTROPHILS 66.1 % (40-80); PLATELET COUNT 288 10x3/uL (130-400); RBC 3.57 10x6/uL (4.20-6.10); WBC 9.6 10x3/uL (4.8-10.8)
[2018-03-25 06:25] LABS: ANION GAP 14.3 mmol/L (8-16); CALCIUM 8.3 mg/dL (8.5-10.1); CHOL - HDL RATIO 5.5 ratio (2.3-4.9); CREATININE - SERUM 1.1 mg/dL (0.6-1.3); LDL-HDL RATIO 3.8 ratio (1.5-3.5)
[2018-03-25 06:29] LABS: POTASSIUM - SERUM 3.3 mmol/L (3.5-5.1)
[2018-03-26 04:00] VITALS: BP 132/66
[2018-03-26 06:19] LABS: BASOPHILS 0.7 % (0-2); EOSINOPHILS 1.7 % (0-7); HEMATOCRIT 32.5 % (42.0-54.0); HEMOGLOBIN 10.5 g/dL (13.5-17.5); IMMATURE GRANULOCYTES 0.1 % (0-5); LYMPHOCYTES 23.8 % (15-50); MCHC 32.3 g/dL (31.0-37.0); MCV 89.8 fL (80.0-100.0); MEAN PLATELET VOLUME 9.4 fL (7.4-10.4); MONOCYTES 7.9 % (2-11); NEUTROPHILS 65.8 % (40-80); PLATELET COUNT 326 10x3/uL (130-400); RBC 3.62 10x6/uL (4.20-6.10); RDW 15.1 % (11.5-14.5); WBC 9.1 10x3/uL (4.8-10.8)
[2018-03-26 06:45] LABS: ANION GAP 16.1 mmol/L (8-16); CALCIUM 8.5 mg/dL (8.5-10.1); CARBON DIOXIDE 24.4 mmol/L (21.0-32.0); CREATININE - SERUM 1.2 mg/dL (0.6-1.3); POTASSIUM - SERUM 3.5 mmol/L (3.5-5.1)
[2018-03-26 08:27] VITALS: BP 145/76
[2018-03-26 11:00] VITALS: BP 128/39
[2018-03-26 16:00] VITALS: BP 134/87
[2018-03-26 18:38] VITALS: BP 134/87
[2018-03-26 20:00] VITALS: BP 122/65
[2018-03-27 00:53] VITALS: BP 131/67
[2018-03-27 04:00] VITALS: BP 156/63
[2018-03-27 05:52] LABS: BASOPHILS 0.6 % (0-2); HEMATOCRIT 31.1 % (42.0-54.0); IMMATURE GRANULOCYTES 0.2 % (0-5); LYMPHOCYTES 15.9 % (15-50); MCH 28.8 pg (26.0-34.0); MCHC 32.2 g/dL (31.0-37.0); MCV 89.6 fL (80.0-100.0); MEAN PLATELET VOLUME 9.3 fL (7.4-10.4); MONOCYTES 12.2 % (2-11); NEUTROPHILS 69.1 % (40-80); PLATELET COUNT 306 10x3/uL (130-400); RBC 3.47 10x6/uL (4.20-6.10); RDW 15.3 % (11.5-14.5); WBC 10.4 10x3/uL (4.8-10.8)
[2018-03-27 06:16] LABS: ANION GAP 16.6 mmol/L (8-16); CALCIUM 8.2 mg/dL (8.5-10.1); CARBON DIOXIDE 25.5 mmol/L (21.0-32.0); CREATININE - SERUM 1.3 mg/dL (0.6-1.3); POTASSIUM - SERUM 4.1 mmol/L (3.5-5.1)
[2018-03-27 08:58] VITALS: BP 128/95
[2018-03-27] MEDS ORDERED: PLAVIX75 MG PO (10:37)
[2018-03-27] MEDS ORDERED: LASIX40 MG PO (10:38)
[2018-03-27] MEDS ORDERED: COREG 3.1253.125 MG PO (10:38)
[2018-03-27] MEDS ORDERED: ENTRESTO 24 MG1 EACH PO (10:38)
[2018-03-27] MEDS ORDERED: PROTONIX40 MG PO (10:39)
[2018-03-27] MEDS ORDERED: ASPIRIN81 MG PO (13:30)
== END 2018-03-27 14:59 | disposition home or self-care (01) | DRG 246 ==
LOC: D.ER 22:58 → D.M2 23:35
PROVIDERS: Internal Medicine Interventional Cardiology; Internal Medicine Nephrology
PROC: 4A023N7 Measurement of Cardiac Sampling and Pressure, Left Heart, Percutaneous Approach (ICD-10-PCS; 2018-03-24)
PROC: B2111ZZ Fluoroscopy of Multiple Coronary Arteries using Low Osmolar Contrast (ICD-10-PCS; 2018-03-24)
PROC: B2151ZZ Fluoroscopy of Left Heart using Low Osmolar Contrast (ICD-10-PCS; 2018-03-24)
PROC: 027034Z Dilation of Coronary Artery, One Artery with Drug-eluting Intraluminal Device, Percutaneous Approach (ICD-10-PCS; principal; 2018-03-24 15:11)
PROC: 027035Z Dilation of Coronary Artery, One Artery with Two Drug-eluting Intraluminal Devices, Percutaneous Approach (ICD-10-PCS; 2018-03-25)
PROC: 02703DZ Dilation of Coronary Artery, One Artery with Intraluminal Device, Percutaneous Approach (ICD-10-PCS; 2018-03-25)
DX: I25.10 Atherosclerotic heart disease of native coronary artery without angina pectoris (principal); J96.21 Acute and chronic respiratory failure with hypoxia; I50.23 Acute on chronic systolic (congestive) heart failure; J44.9 Chronic obstructive pulmonary disease, unspecified; G47.33 Obstructive sleep apnea (adult) (pediatric); G40.909 Epilepsy, unspecified, not intractable, without status epilepticus; G47.419 Narcolepsy without cataplexy; D50.9 Iron deficiency anemia, unspecified; Z87.891 Personal history of nicotine dependence; I11.0 Hypertensive heart disease with heart failure

== ENCOUNTER 2018-05-26 23:06 | Inpatient (IN) | payer MEDICARE ==
[~2018-05-26] VITALS: Ht 182.9 cm; Wt 114.5 kg
[~2018-05-26 23:06] MED LIST: ASPIRIN81 MG PO; COREG 3.1253.125 MG PO; DILANTIN100 MG PO; ENTRESTO 24 MG1 EACH PO; FUROSEMIDE20 MG PO; LASIX40 MG PO; NORVASC10 MG PO; PLAVIX75 MG PO; PROTONIX40 MG PO
[2018-05-26 23:20] VITALS: BP 150/101
--- NOTE | 2018-05-26 23:29 | NUR ---
PT ALSO RECEIVED VECURONIUM 10MG, VERSED 7.5MG, FENTANYL 150 MCG TOTAL
[2018-05-26 23:35] VITALS: BP 149/95
[2018-05-26 23:45] VITALS: BP 151/88
--- NOTE | 2018-05-26 23:45 | NUR ---
DIPRIVAN STARTED AT 2315 @ 5 MCG/KG. INCREASED TO 10 MCG/KG @ 2325 PATIENT UNCOMFORTABLE AND MOVING ARMS INCREASED TO 15 MCG/KG @ 2335 PATIENT STILL MOVING ARMS APPEARS UNCOMFORTALBE INCREASED TO 20 MCG/KG @ 2345 PATIENT APPEARS IN NO DISTRESS AT THIS TIME
[2018-05-27] VITALS (20 sets, daily range): BP systolic 114–197; BP diastolic 46–96; Ht 182.9 cm; Wt 114.5 kg
--- NOTE | 2018-05-27 00:20 | NUR ---
DIPRIVAN INCREASED TO 25 MCG/KG, PATIENT APPEARED UNCOMFORTABLE AND WAS MOVING HE ARMS AND HEAD. AFTER INCREASE PATIENT APPEARS COMFORTABLE.
[2018-05-27 00:44] LABS: ALBUMIN 3.5 g/dL (3.4-5.0); ALKALINE PHOSPHATASE 126 U/L (46-116); ALT (SGPT) 39 U/L (10-68); BILIRUBIN - TOTAL 0.23 mg/dL (0.2-1.3); CALC OSMOLALITY 285 mosm/kg (275-300); CALCIUM 8.5 mg/dL (8.5-10.1); CARBON DIOXIDE 23.7 mmol/L (21.0-32.0); CHLORIDE - SERUM 102 mmol/L (98-107); CREATININE - SERUM 1.8 mg/dL (0.6-1.3); PROTEIN - SERUM 7.7 g/dL (6.4-8.2); SODIUM 139 mmol/L (136-145); UREA NITROGEN 26 mg/dL (7-18); eGFR NON AFRICAN AMERICAN 41 mL/min (90-120)
[2018-05-27 00:45] LABS: GLUCOSE 157 mg/dL (74-106)
[2018-05-27 00:50] LABS: BASOPHILS 0.1 % (0-2); EOSINOPHILS 0.1 % (0-7); HEMATOCRIT 45.7 % (42.0-54.0); HEMOGLOBIN 14.7 g/dL (13.5-17.5); IMMATURE GRANULOCYTES 0.2 % (0-5); LYMPHOCYTES 4.8 % (15-50); MCH 28.8 pg (26.0-34.0); MCHC 32.2 g/dL (31.0-37.0); MCV 89.6 fL (80.0-100.0); MONOCYTES 5.9 % (2-11); NEUTROPHILS 88.9 % (40-80); PLATELET COUNT 209 10x3/uL (130-400); RDW 15.1 % (11.5-14.5); WBC 17.4 10x3/uL (4.8-10.8)
[2018-05-27 01:02] LABS: CREATINE KINASE 195 UL (21-232)
--- NOTE | 2018-05-27 01:05 | NUR ---
FAMILY LEFT ED AND WENT HOME LEFT CONTACT NUMBERS GEORGE RAY [phone] FAMILY MEMBER
[2018-05-27 01:09] LABS: APPEARANCE CLEAR (CLEAR); BILIRUBIN NEGATIVE (NEGATIVE); COLOR YELLOW (YELLOW); GLUCOSE NEGATIVE (NEGATIVE); KETONE NEGATIVE (NEGATIVE); NITRITE NEGATIVE (NEGATIVE); PROTEIN 2+ mg/dL (NEGATIVE); UROBILINOGEN NORMAL (NORMAL)
[2018-05-27 01:09] LABS: TROPONIN-I 2.599 ng/mL (0.000-0.060)
--- NOTE | 2018-05-27 07:42 | NUR ---
LYING IN BED ON VENT AT THIS TIME. NO ACUTE DISTRESS NOTED. PT OPENS EYES SPONTANEOUSLY AND FOLLOWS COMMANDS. TURNED Q2H. BED ALARM ON. WILL CONTINUE PLAN OF CARE.
--- NOTE | 2018-05-27 09:25 | NUR ---
PER DR PEARCE, HOLD HEPARIN GTT UNTIL PT IS SEEN BY DR METZ.
--- NOTE | 2018-05-27 09:32 | NUR ---
PER DR PEARCE, HOLD HEPARIN GTT UNTIL DR METZ SEES PT.
--- NOTE | 2018-05-27 11:09 | NUR ---
PER DR METZ, DC HEPARIN GTT.
--- NOTE | 2018-05-27 11:31 | NUR ---
OGT PLACED AT THIS TIME PER PHYSICAN ORDERS. PLACEMENT VERIFIED BY AUSCULTATION. ALSO AT THIS TIME SPOKE WITH FAMILY. THEY STATED THEY WILL FIND OUT IF PT IS STILL TAKING DILANTIN PER PHYSICIAN REQUEST. NO ACUTE DISTRESS NOTED. WILL CONTINUE PLAN OF CARE.
--- NOTE | 2018-05-27 12:20 | NUR ---
PER PTS FAMILY, THEY DO NOT BELIEVE THAT PT STILL TAKES DILANTIN.
--- NOTE | 2018-05-27 13:32 | NUR ---
DR DYER NOTIFIED OF CONSULT.
--- NOTE | 2018-05-27 15:23 | NUR ---
LYING IN BED ON VENT AT THIS TIME. PT FOLLOWS COMMANDS. NO ACUTE DISTRESS NOTED. PT TURNED Q2H. BED ALARM ON. WILL CONTINUE PLAN OF CARE.
--- NOTE | 2018-05-27 17:21 | MORECARE ---
CASE MANAGEMENT DISCHARGE SUMMARY PATIENT: KYARA GARCIA UNIT: [id number] ADM DATE: 05/27/18 AGE: 62 : 53 SEX: M ROOM/BED: D.2305 AUTHOR: MAURICIO TAVARES PHYSICIAN: REFERRING PHYSICIAN: MARYURI PEARCE MD DATE OF SERVICE: 05/27/18 Discharge Plan Patient Name: KYARA GARCIA [facility] [facility] 1955 Planned Disposition: Anticipated Discharge Date: Discharge Date: Expected LOS: Initial Reviewer: [email or web address] Initial Review Date: 05/27/2018 Generated: 05/27/18 6:21 pm Comments DCP- Discharge Planning Updated by [email or web address]: Krystal Antonio on 05/27/18 4:[address] CM ATTEMPTED TO VISIT WITH PATIENT FOR INTAKE ASSESSMENT. PATIENT IS CURRENTLY SEDATED ON VENTILATOR. NO FAMILY AVAILABLE AT THIS TIME. CM WILL TRY BACK AT A LATER TIME. Patient Name: KYARA GARCIA Page [phone] at 1721 All edits/amendments must be made on the electronic document DICTATION DATE: 05/27/181720 OPERATIONS AGENT: SHERRY 05/27/181720 RPT#: [id number] DC DATE: STATUS: ADM IN [facility] [address] [place] [address] END OF REPORT
--- NOTE | 2018-05-27 17:58 | NUR ---
TROPONIN NOTED AT 15 IN COMPARISON TO [address] BLACK NOTIFIED, STATED TO OBTAIN EKG. ALSO STATED TO RECHECK LEVEL IN 3 HOURS AND NOTIFY HIM OF RESULTS.
[2018-05-28] VITALS (24 sets, daily range): BP systolic 141–194; BP diastolic 77–112
[2018-05-28 04:32] LABS: BASOPHILS 0.1 % (0-2); EOSINOPHILS 0.2 % (0-7); IMMATURE GRANULOCYTES 0.2 % (0-5); LYMPHOCYTES 22.6 % (15-50); MCH 28.7 pg (26.0-34.0); MCHC 32.3 g/dL (31.0-37.0); MCV 88.9 fL (80.0-100.0); MEAN PLATELET VOLUME 9.5 fL (7.4-10.4); MONOCYTES 8.4 % (2-11); NEUTROPHILS 68.5 % (40-80); RDW 15.5 % (11.5-14.5)
[2018-05-28 04:36] LABS: HEMATOCRIT 35.9 % (42.0-54.0); HEMOGLOBIN 11.6 g/dL (13.5-17.5); PLATELET COUNT 147 10x3/uL (130-400); RBC 4.04 10x6/uL (4.20-6.10); WBC 10.8 10x3/uL (4.8-10.8)
[2018-05-28 04:46] LABS: ALBUMIN 2.8 g/dL (3.4-5.0); BILIRUBIN - TOTAL 0.35 mg/dL (0.2-1.3); CARBON DIOXIDE 25.3 mmol/L (21.0-32.0); CREATININE - SERUM 1.5 mg/dL (0.6-1.3); MAGNESIUM - SERUM 1.8 mg/dL (1.8-2.4); PHOSPHOROUS 2.9 mg/dL (2.5-4.9); PROTEIN - SERUM 6.3 g/dL (6.4-8.2)
[2018-05-28 04:51] LABS: ANION GAP 15.5 mmol/L (8-16); POTASSIUM - SERUM 3.8 mmol/L (3.5-5.1)
--- NOTE | 2018-05-28 10:24 | NUR ---
Nutrition follow-up: Pt intubated, sedated; propofol @ 50.6 ml/hr Labs reviewed Wt: 224# Recommend starting Pulmocare @ 25 ml/hr with increase to goal rate of 40 ml/hr; H2O flush 50 ml Q [address]N following.
--- NOTE | 2018-05-28 13:18 | NUR ---
Nutrition Consult: Consult received to begin nutrition support via TF. Will put order in to start TF of Pulmocare @ 25 ml/hr. Increase 10 ml every 6-8 hours as tolerated to goal rate of 40 ml/hr. H2O flushes [address] will continue to monitor pt progress.
--- NOTE | 2018-05-28 19:25 | NUR ---
Received patient sedated in bed on vent with eyes closed, assessment completed per flowsheet. Oral care/suctioning provided, repositioned for comfort. ETT/OGT secured, IV lines changed per protocol. No further needs at this time, see flowsheet for details. All VSS and will continue to monitor.
--- NOTE | 2018-05-28 19:45 | CN ---
PATIENT NAME:KYARA CARLOS MEDICAL RECORD: [id number] : 53 LOCATION:BRIDGETD.2305 ADMIT DATE: 05/27/18 ACCOUNT: [id number] CONSULTING PHYSICIAN: NAY PAGAN MD REFERRING PHYSICIAN: TABITHA PEARCE MD DATE OF CONSULTATION: 05/27/2018 CONSULT REQUESTING PHYSICIAN: Tabitha Pearce MD REASON FOR CONSULTATION: Vent management. HISTORY OF PRESENT ILLNESS: Mr. Carlos is a 62-year-old gentleman who was transferred from [place] on ventilator, for advanced care. The patient has history of congestive heart failure, CAD, and COPD. The patient went into respiratory failure. Chest x-ray showed pulmonary edema. The history was taken mainly by talking to the nursing staff and reviewing the patient's note. PAST MEDICAL HISTORY: 1. Seizure disorder. 2. Hypertension. 3. COPD. 4. Obstructive sleep apnea, on CPAP machine. PAST SURGICAL HISTORY: 1. He had T&A. 2. Skin graft to right lower leg. ALLERGIES: ALLERGIC TO SULFA AND BACTRIM. MEDICATIONS: [employer] was reviewed. PERSONAL AND SOCIAL HISTORY: The patient is an ex-smoker. He is nondrinker. FAMILY HISTORY: Noncontributory. PHYSICAL EXAMINATION: GENERAL: The patient is lying comfortably in bed. He is not in acute distress. VITAL SIGNS: The blood pressure is 137/86, pulse is 87, respiration is 18, temperature is 98.3, and SpO2 is 98% on assist control mechanical ventilation. HEENT: Conjunctivae are pink. Sclerae are not icteric. NECK: Neck is supple. No JVD. CHEST: The chest excursion is minimal on both sides. There are bilateral crackles. No wheezing. HEART: Rhythm regular. Normal sound. No murmur. ABDOMEN: Abdomen is soft. Bowel sounds present. No hepatosplenomegaly. RECTAL: Deferred. EXTREMITIES: No cyanosis. No clubbing. No pedal edema. CENTRAL NERVOUS SYSTEM: The patient is orally intubated and sedated. There is no obvious cranial nerve abnormality. DIAGNOSTIC DATA: Chest radiograph; there is pulmonary edema and bilateral patchy infiltrate. LABORATORY DATA: CBC; WBC is 17.4, hemoglobin 14.7, hematocrit 45.7, and platelet count 209. Chemistry; sodium is 139, potassium is 5, BUN is 26, and CONSULT REPORT [id number] KYARA CARLOS creatinine is 1.8. ABG; pH is 7.28, pCO2 is 49.8, pO2 is 61, and lactic acid 2.2. IMPRESSION: 1. Acute hypoxic hypercapnic respiratory failure. 2. Respiratory acidosis. 3. Pulmonary edema. 4. Bilateral pneumonia, possible community-acquired pneumonia. 5. Acute IA. 6. Leukocytosis. 7. COPD with acute exacerbation. 8. Obstructive sleep apnea. The patient is using his CPAP machine. 9. Sepsis, SIRS type of syndrome with lactic acidosis and leukocytosis. RECOMMENDATION: 1. Continue mechanical ventilation and adjust the setting. 2. I will hold the diuretics if the CVP is less than 10-12. 3. Continue with empiric antibiotics, Zosyn and vancomycin. 4. Albuterol/ipratropium nebulizer. 5. Brovana and budesonide nebulizer. 6. Dobutamine per cardiology. 7. GI bleed prophylaxis. Follow up labs and chest radiograph. The critical care time is [address] Pearce, thank you for involving me in the care of Mr. Carlos. TRANSINT:[id number] Voice Confirmation ID: [id number] DOCUMENT ID: [id number] NAY PAGAN MD at 1945 CC: [id number] DICTATION DATE: 05/27/18 1548 GREY STOCK RECORDER: 05/27/18 1711 ADM IN [facility] [address] [place] [address]
--- NOTE | 2018-05-28 21:00 | NUR ---
Oral care/suctioning provided, repositioned for comfort. No visitors at this time, HS meds given without difficulty. All VSS and will continue to monitor.
--- NOTE | 2018-05-28 23:10 | NUR ---
Reassessment completed per flowsheet, no changes from previous assessment. Patient opens eyes to voice, localizes pain/withdraws from noxious stimuli. Oral care/suctioning provided, repositioned for comfort. See flowsheet for details, all VSS and will continue to monitor.
[2018-05-29] VITALS (26 sets, daily range): BP systolic 113–179; BP diastolic 57–99
[2018-05-29 05:49] LABS: ANION GAP 16.5 mmol/L (8-16); CALCIUM 8.6 mg/dL (8.5-10.1); CARBON DIOXIDE 27.8 mmol/L (21.0-32.0); MAGNESIUM - SERUM 1.9 mg/dL (1.8-2.4); POTASSIUM - SERUM 3.3 mmol/L (3.5-5.1)
[2018-05-29 05:52] LABS: CREATININE - SERUM 1.1 mg/dL (0.6-1.3)
[2018-05-29 06:03] LABS: HEMATOCRIT 36.5 % (42.0-54.0); HEMOGLOBIN 12.2 g/dL (13.5-17.5); LYMPHOCYTES 31.4 % (15-50); MCH 29.1 pg (26.0-34.0); MCHC 33.4 g/dL (31.0-37.0); MCV 87.1 fL (80.0-100.0); MEAN PLATELET VOLUME 9.7 fL (7.4-10.4); NEUTROPHILS 58.7 % (40-80); RBC 4.19 10x6/uL (4.20-6.10); RDW 14.7 % (11.5-14.5); WBC 13.3 10x3/uL (4.8-10.8)
[2018-05-29 06:04] LABS: PLATELET COUNT 185 10x3/uL (130-400)
--- NOTE | 2018-05-29 07:00 | NUR ---
SHIFT ASSESSMENT COMPLETE, PT IS SEDATED ON VENT, ALL PPP, VSS, WILL CON'T TO MONITOR
--- NOTE | 2018-05-29 13:30 | CN ---
PATIENT NAME:KYARA GARCIA MEDICAL RECORD: [id number] : 53 LOCATION:[id number] ADMIT DATE: 05/27/18 ACCOUNT: [id number] CONSULTING PHYSICIAN: ATIF METZ MD REFERRING PHYSICIAN: MARYURI PEARCE MD DATE OF CONSULTATION: 05/27/2018 HISTORY OF PRESENT ILLNESS: A 62-year-old gentleman with a known history of coronary artery disease, status post intervention via Dr. Olivares. He has a history of cardiomyopathy, EF 25%. Apparently, rapid deterioration in clinical status prompting intubation and transfer from [place] for respiratory failure. ECG shows nonspecific ST-T changes, no ST elevation. Chest x-ray is consistent with volume overload. We are asked to see him concerning his cardiovascular status. PAST MEDICAL HISTORY: Includes; 1. History of hypertension. 2. Hyperlipidemia. 3. Cardiomyopathy. 4. Coronary artery disease as described above. 5. Obstructive sleep apnea. SOCIAL HISTORY: Unobtainable. ALLERGIES: BACTRIM. MEDICATIONS: Prior to transfer include Plavix 75 every day, amlodipine 10 mg p.o. daily, carvedilol 3.125 b.i.d., Entresto 24/ one tablet b.i.d., aspirin 81 every day, Dilantin 100 t.i.d., Lasix 40 every day, Protonix 40 every day. REVIEW OF SYSTEMS: Unobtainable due to the patient factors. PHYSICAL EXAMINATION: GENERAL: Intubated and sedated, no acute distress. VITAL SIGNS: Blood pressure 136/86, pulse 88 and regular. HEENT: Normocephalic, atraumatic. NECK: No bruits noted. HEART: Regular. Questionable S3 gallop. LUNGS: Actually fairly good air excursion. ABDOMEN: Soft, nontender. EXTREMITIES: Pulses are 1+, with no edema. DIAGNOSTIC DATA: ECG shows nonspecific ST-T changes inferolaterally. This is unchanged. IMPRESSION: Cardiomyopathy exacerbation, [id number] CHF, does have elevation of troponin level. Difficult to assess if this is a strain from cardiomyopathy exacerbation or other. We will start cardiomyopathy meds. Add Dobutrex for inotropic support. Further recommendations based on clinical course. TRANSINT:[id number] Voice Confirmation ID: [id number] DOCUMENT ID: [id number] CONSULT REPORT [id number] RADHAKYARA MURRIETA,ATIF Meza MD at 1330 CC: [id number] DICTATION DATE: 05/27/18 1130 APPLICATIONS COORDINATOR: 05/27/18 1204 ADM IN [place] [id number] [place] [id number]
--- NOTE | 2018-05-29 15:42 | MORECARE ---
CASE MANAGEMENT DISCHARGE SUMMARY PATIENT: KYARA GARCIA UNIT: [id number] ADM DATE: 05/27/18 AGE: 62 : 53 SEX: M ROOM/BED: D.2305 AUTHOR: MAURICIO TAVARES PHYSICIAN: REFERRING PHYSICIAN: MARYURI PEARCE MD DATE OF SERVICE: 05/29/18 Discharge Plan Patient Name: KYARA GARCIA [facility] : 1955 Planned Disposition: Anticipated Discharge Date: Discharge Date: Expected LOS: Initial Reviewer: [email or web address] Initial Review Date: 05/27/2018 Generated: 05/29/18 4:42 pm Comments DCP- Discharge Planning Updated by [email or web address]: Krystal Antonio on 05/29/18 2:[address] CM unable to get discharge assessment completed patient is still on ventilator intubated. No family available. CM tried to call contact but didn't get an answer. CM will continue to follow and assist as needed with discharge planning / needs. DCP- Discharge Planning Updated by [email or web address]: Krystal Antonio on 05/27/18 4:[address] CM ATTEMPTED TO VISIT WITH PATIENT FOR INTAKE ASSESSMENT. PATIENT IS CURRENTLY SEDATED ON VENTILATOR. NO FAMILY AVAILABLE AT THIS TIME. CM WILL TRY BACK AT A LATER TIME. Last DP export: 05/27/18 4:21 pm Patient Name: KYARA GARCIA Page [phone] at 1542 All edits/amendments must be made on the electronic document DICTATION DATE: 05/29/18 154 GEOLOGICAL MANAGER: SHERRY 05/29/18 154 RPT#: [id number] DC DATE: STATUS: ADM IN [facility] [address] [place] [address] END OF REPORT
--- NOTE | 2018-05-29 19:10 | NUR ---
Received patient sedated in bed on vent with eyes closed, assessment completed per flowsheet. ETT/OGT secured, TF bags changed per protocol. Oral care/suctioning provided, repositioned for comfort. No further needs at this time, see flowsheet for details. All VSS and will continue to monitor.
--- NOTE | 2018-05-29 21:00 | NUR ---
No visitors at this time, HS meds given without difficulty. Oral care/suctioning provided, repositioned for comfort. No further needs and will continue to monitor.
--- NOTE | 2018-05-29 23:10 | NUR ---
Reassessment completed per flowsheet, no changes from previous assessment. ETT/OGT secured, Pulmocare @ 10ml/hr. Oral care/suctioning provided, repositioned for comfort. No further needs at this time, see flowsheet for details. All VSS and will continue to monitor.
[2018-05-30] VITALS (24 sets, daily range): BP systolic 150–170; BP diastolic 64–110
--- NOTE | 2018-05-30 01:00 | NUR ---
Patient sedated in bed on vent with eyes closed, no s/s of distress at this time. Oral care/suctioning provided, repositioned for comfort. All VSS and will continue to monitor.
--- NOTE | 2018-05-30 03:10 | NUR ---
Reassessment completed per flowsheet, no changes from previous assessment. ETT/OGT secured, Pulmocare @ 10ml/hr. Oral care/suctioning provided, thick/white mucoid secretions noted. Repositioned for comfort, no further needs at this time. See flowsheet for details, all VSS and will continue to monitor.
--- NOTE | 2018-05-30 05:00 | NUR ---
Sedation vacation completed, patient HR/BP/Respiration increased when sedation decreased. Nods head appropriately to questions, sedation returned to previous. Oral care/suctioning completed, repositioned for comfort. All VSS and will continue to monitor.
[2018-05-30 05:34] LABS: ANION GAP 13.8 mmol/L (8-16); CALCIUM 8.5 mg/dL (8.5-10.1); CARBON DIOXIDE 29.1 mmol/L (21.0-32.0); MAGNESIUM - SERUM 2.3 mg/dL (1.8-2.4)
[2018-05-30 05:35] LABS: BASOPHILS 0.6 % (0-2); EOSINOPHILS 2.7 % (0-7); HEMATOCRIT 34.5 % (42.0-54.0); HEMOGLOBIN 11.2 g/dL (13.5-17.5); IMMATURE GRANULOCYTES 0.3 % (0-5); LYMPHOCYTES 21.4 % (15-50); MCH 28.9 pg (26.0-34.0); MCHC 32.5 g/dL (31.0-37.0); MCV 88.9 fL (80.0-100.0); MEAN PLATELET VOLUME 9.7 fL (7.4-10.4); MONOCYTES 9.9 % (2-11); NEUTROPHILS 65.1 % (40-80); PLATELET COUNT 152 10x3/uL (130-400); RBC 3.88 10x6/uL (4.20-6.10); RDW 15.9 % (11.5-14.5); WBC 6.8 10x3/uL (4.8-10.8)
[2018-05-30 05:43] LABS: CREATININE - SERUM 1.5 mg/dL (0.6-1.3)
[2018-05-30 05:44] LABS: POTASSIUM - SERUM 2.9 mmol/L (3.5-5.1)
--- NOTE | 2018-05-30 10:22 | NUR ---
Nutrition follow-up: Pt intubated; may extubate today Pulmocare only infusing @ 10 ml/hr; has never been advanced to goal rate of 40 ml/hr Labs reviewed Wt: 244# RDN following.
--- NOTE | 2018-05-30 15:59 | NUR ---
BEDSIDE NURSING SWALLOW EVALUATION, VERY SMALL SIPS H2O, O2 SAT DID NOT DROP. NO NOTED DIFFICULTY SWALLOWING, NO NOTED COUGHING AFTER SWALLOW.
[2018-05-31] VITALS (23 sets, daily range): BP systolic 150–177; BP diastolic 76–97
[2018-05-31 06:40] LABS: BASOPHILS 0.3 % (0-2); EOSINOPHILS 4.8 % (0-7); HEMATOCRIT 34.2 % (42.0-54.0); IMMATURE GRANULOCYTES 0.3 % (0-5); LYMPHOCYTES 21.9 % (15-50); MCH 28.5 pg (26.0-34.0); MCHC 32.2 g/dL (31.0-37.0); MCV 88.6 fL (80.0-100.0); MEAN PLATELET VOLUME 9.6 fL (7.4-10.4); MONOCYTES 8.6 % (2-11); NEUTROPHILS 64.1 % (40-80); PLATELET COUNT 158 10x3/uL (130-400); RBC 3.86 10x6/uL (4.20-6.10); WBC 7.3 10x3/uL (4.8-10.8)
[2018-05-31 07:13] LABS: ANION GAP 16.7 mmol/L (8-16); CALCIUM 8.5 mg/dL (8.5-10.1); CARBON DIOXIDE 27.2 mmol/L (21.0-32.0); CREATININE - SERUM 1.4 mg/dL (0.6-1.3); MAGNESIUM - SERUM 2.2 mg/dL (1.8-2.4)
[2018-05-31 07:14] LABS: POTASSIUM - SERUM 2.9 mmol/L (3.5-5.1)
--- NOTE | 2018-05-31 11:00 | NUR ---
NO CHANGE NOTED
--- NOTE | 2018-05-31 15:00 | NUR ---
NO CHANGE NOTED
--- NOTE | 2018-05-31 19:30 | NUR ---
RESUMED CARE OF PT, ASSESSMENT PER FLOWSHEET. PT RESTING IN BED WATCHING TV IN NO APPARENT DISTRESS, REMAINS DISORIENTED TO TIME AND SITUATION AT TIMES. PPP, HR SR ON CM, MARTINEZ CATH PATENT, PT DENIES ANY NEEDS, BED LOW, CALL LIGHT IN REACH, BED ALARM ON.
--- NOTE | 2018-05-31 21:05 | NUR ---
NO VISTORS PRESENT AT THIS TIME, REMAINS SR ON CM, VSS.
--- NOTE | 2018-05-31 23:05 | NUR ---
ASISSTED PT ONTO BEDPAN, VOIDED SOFT BROWN BM, PERICARE PROVIDED.
[2018-06-01] VITALS (18 sets, daily range): BP systolic 151–167; BP diastolic 79–100
--- NOTE | 2018-06-01 01:11 | NUR ---
PT RESTING IN BED WITH EYES CLOSED, SR ON CM, CONT POC.
--- NOTE | 2018-06-01 01:42 | NUR ---
PATIENT DENIES NEEDS - VSS CPOC
--- NOTE | 2018-06-01 03:30 | NUR ---
NO ACUTE CHANGES CPOC
[2018-06-01 05:30] LABS: BASOPHILS 0.4 % (0-2); EOSINOPHILS 5.5 % (0-7); HEMATOCRIT 33.7 % (42.0-54.0); HEMOGLOBIN 10.9 g/dL (13.5-17.5); IMMATURE GRANULOCYTES 0.1 % (0-5); MCH 28.6 pg (26.0-34.0); MCHC 32.3 g/dL (31.0-37.0); MCV 88.5 fL (80.0-100.0); MEAN PLATELET VOLUME 9.5 fL (7.4-10.4); MONOCYTES 10.5 % (2-11); NEUTROPHILS 63.5 % (40-80); PLATELET COUNT 162 10x3/uL (130-400); RBC 3.81 10x6/uL (4.20-6.10); RDW 15.7 % (11.5-14.5); WBC 8.1 10x3/uL (4.8-10.8)
[2018-06-01 05:45] LABS: ANION GAP 15.9 mmol/L (8-16); CALCIUM 8.3 mg/dL (8.5-10.1); CARBON DIOXIDE 25.7 mmol/L (21.0-32.0); CREATININE - SERUM 1.5 mg/dL (0.6-1.3); VANCOMYCIN - RANDOM 15.8 ug/mL (10.0-20.0)
[2018-06-01 05:48] LABS: POTASSIUM - SERUM 2.6 mmol/L (3.5-5.1)
--- NOTE | 2018-06-01 19:10 | NUR ---
SHIFT ASSESSMENT COMPLETED SEE FLOWSHEET
--- NOTE | 2018-06-01 19:30 | NUR ---
PATIENT CARE RECEIVED SHIFT ASSESSMENT COMPLETED
--- NOTE | 2018-06-01 21:05 | NUR ---
VSS, DENIES NEEDS CPOC
--- NOTE | 2018-06-01 23:40 | NUR ---
NO ACUTE CHANGES CPOC
[2018-06-02] VITALS (9 sets, daily range): BP systolic 135–167; BP diastolic 81–93
--- NOTE | 2018-06-02 05:20 | NUR ---
PT REQUESTED BEDPAN - CPOC
[2018-06-02 05:50] LABS: ALBUMIN 2.9 g/dL (3.4-5.0); ANION GAP 15.7 mmol/L (8-16); BILIRUBIN - TOTAL 0.5 mg/dL (0.2-1.3); CALCIUM 8.4 mg/dL (8.5-10.1); CARBON DIOXIDE 26.5 mmol/L (21.0-32.0); CREATININE - SERUM 1.6 mg/dL (0.6-1.3); PROTEIN - SERUM 7.2 g/dL (6.4-8.2)
[2018-06-02 06:00] LABS: POTASSIUM - SERUM 3.2 mmol/L (3.5-5.1)
--- NOTE | 2018-06-02 09:47 | NUR ---
Nutrition follow-up: Diet advanced to regular after extubation 05/30/18. PO intake 100% of last 3 meals Labs reviewed Wt: 241# +BM RDN following.
--- NOTE | 2018-06-02 12:35 | NUR ---
NO DISTRESS NOTED TODAY, CALM AND COOPERATIVE
--- NOTE | 2018-06-02 15:38 | NUR ---
PT EVALUATED AND STATES HE IS ABLE TO STAND, TRANSFER AND AMBULATE PER SELF. BEDSIDE COMODE PLACED IN ROOM AND NURSE MONITORED PATIENT HE USED IT, HE WAS ABLE TO TRANSFER, USE COMODE AND CLEAN SELF PER SELF, HE THEN PUT HIMSELF BACK TO BED WITHOUT NOTED DIFFICULTY.
--- NOTE | 2018-06-02 15:50 | MORECARE ---
CASE MANAGEMENT DISCHARGE SUMMARY PATIENT: KYARA GARCIA UNIT: [id number] ADM DATE: 05/27/18 AGE: 62 : 54 SEX: M ROOM/BED: D.2305 AUTHOR: ANUSHA,DOC PHYSICIAN: REFERRING PHYSICIAN: MARYURI PEARCE MD DATE OF SERVICE: 06/02/18 Discharge Plan Patient Name: KYARA GARCIA Facility[facility]:[place] : 1955 Planned Disposition: Home Anticipated Discharge Date: Discharge Date: Expected LOS: Initial Reviewer: [email or web address] Initial Review Date: 06/02/2018 Generated: 06/02/18 4:50 pm Comments DCP- Discharge Planning Updated by [email or web address]: Krystal Antonio on 05/29/18 2:[address] CM unable to get discharge assessment completed patient is still on ventilator intubated. No family available. CM tried to call contact but didn't get an answer. CM will continue to follow and assist as needed with discharge planning / needs. DCP- Discharge Planning Updated by [email or web address]: Krystal Antonio on 05/27/18 4:[address] CM ATTEMPTED TO VISIT WITH PATIENT FOR INTAKE ASSESSMENT. PATIENT IS CURRENTLY SEDATED ON VENTILATOR. NO FAMILY AVAILABLE AT THIS TIME. CM WILL TRY BACK AT A LATER TIME. DCPIA - Discharge Planning Initial Assessment Updated by [email or web address]: Krystal Antonio on 06/02/18 3:46 pm * Is the patient Alert and Oriented? Yes * How many steps to enter\exit or inside your home? 2 RAMP * PCP MANINDER HERNANDEZ * [facility]acy [facility] * Preadmission Environment Home Alone * ADLs Independent * Equipment CPAP * List name and contact numbers for known caregivers / representatives who currently or will assist patient after discharge: JOSEPH GARCIA - BROTHER- [phone] * Verbal permission to speak to the caregivers and representatives has been obtained from the patient. N/A * Community resources currently utilized None * Additional services required to return to the preadmission environment? No * Can the patient safely return to the preadmission environment? Yes * Has this patient been hospitalized within the prior 30 days at any hospital? No Last DP export: 1/10/19 2:42 p Patient Name: KYARA GARCIA Page 28517 at 1550 All edits/amendments must be made on the electronic document DICTATION DATE: 06/02/181548 RAILCAR BRAKE OPERATOR: SHERRY 06/02/181548 RPT#: [id number] DC DATE: STATUS: ADM IN [facility] [address] [place] [address] END OF REPORT
--- NOTE | 2018-06-02 16:01 | MORECARE ---
CASE MANAGEMENT DISCHARGE SUMMARY PATIENT: KYARA GARCIA UNIT: [id number] ADM DATE: 05/27/18 AGE: 62 : 53 SEX: M ROOM/BED: D.2305 AUTHOR: ANUSHADOC PHYSICIAN: REFERRING PHYSICIAN: MARYURI PEARCE MD DATE OF SERVICE: 06/02/18 Discharge Plan Patient Name: KYARA GARCIA Facility: [facility]:[place] : 1955 Planned Disposition: Home Anticipated Discharge Date: Discharge Date: Expected LOS: Initial Reviewer: [email or web address] Initial Review Date: 06/02/2018 Generated: 06/02/18 5:01 pm Comments DCP- Discharge Planning Updated by [email or web address]: Krystal Antonio on 06/02/18 2:[address] Patient Name: KYARA GARCIA Admission Status: ER Accout number: [id number] Admission Date: 05-27-2018 : 1955 Admission Diagnosis:SEPSIS, UNSPECIFIED ORGANISM Attending: MARYURI PEARCE Current LOS: 6 Anticipated DC Date: Planned Disposition: Home Primary Insurance: MEDICARE A & B Discharge Planning Comments: CM met with patient at bedside. Patient states he plans to return to his home in [place]. He states he lives alone other than his little dog. Patient states he does have a CPAP at home. Patient denies any home health services. Patient denies any discharge planning needs at this time. CM will continue to follow and assist as needed with discharge planning/ needs. Lift Truck Mechanic: Krystal Antonio DCP- Discharge Planning Updated by [email or web address]: Krystal Antonio on 05/29/18 2:[address] CM unable to get discharge assessment completed patient is still on ventilator intubated. No family available. CM tried to call contact but didn't get an answer. CM will continue to follow and assist as needed with discharge planning / needs. DCP- Discharge Planning Updated by [email or web address]: Krystal Antonio on 05/27/18 4:[address] CM ATTEMPTED TO VISIT WITH PATIENT FOR INTAKE ASSESSMENT. PATIENT IS CURRENTLY SEDATED ON VENTILATOR. NO FAMILY AVAILABLE AT THIS TIME. CM WILL TRY BACK AT A LATER TIME. DCPIA - Discharge Planning Initial Assessment Updated by [email or web address]: Krystal Antonio on 06/02/18 3:46 pm * Is the patient Alert and Oriented? Yes * How many steps to enter\exit or inside your home? 2 RAMP * PCP MANINDER HERNANDEZ * [facility]acy [facility] * Preadmission Environment Home Alone * ADLs Independent * Equipment CPAP * List name and contact numbers for known caregivers / representatives who currently or will assist patient after discharge: JOSEPH GARCIA - BROTHER- [phone] * Verbal permission to speak to the caregivers and representatives has been obtained from the patient. N/A * Community resources currently utilized None * Additional services required to return to the preadmission environment? No * Can the patient safely return to the preadmission environment? Yes * Has this patient been hospitalized within the prior 30 days at any hospital? No Last DP export: 06/02/18 2:50 p Patient Name: KYARA GARICA Page 36838 at 1601 All edits/amendments must be made on the electronic document DICTATION DATE: 06/02/181599 MILK AND CREAM GRADER: SHERRY 06/02/18 1600 RPT#: [id number] DC DATE: STATUS: ADM IN [facility] [address] [place] [address] END OF REPORT
--- NOTE | 2018-06-02 18:18 | NUR ---
PAGED DR. HART TO REPORT INCREASED BP
--- NOTE | 2018-06-02 18:33 | NUR ---
DR. HART PRESENT WITH ORDER TO RESTART [facility]
--- NOTE | 2018-06-02 19:18 | NUR ---
ASSESSMENT COMPLETE PER FLOW SHEET. REFER FOR FINDINGS. VSS. PT DENIES NEEDS. RESTING COMOFORTABLY. DENIES NEEDS. WILL CONTINUE TO MONITOR
[2018-06-03] VITALS: BP 139/66
--- NOTE | 2018-06-03 00:17 | NUR ---
PT RECIEVED FROM ICU TO ROOM 2104. PT IS ALERT AND ORIENTED X 3. HE DENIES ANY PAIN OR DISCOMFORT AT THIS TIME. HIS ONLY NEED WAS FOR A GLASS OF ICE WATER. NO SOB NOTED. MARTINEZ CATH IS PATENT AND DRAINING TO A GRAVITY BAG. IV INFUSING TO A RIGHT SIDE IJ WITHOUT DIFFICULTY. ABX INFUSING AT THIS TIME. SR'S ARE UP X 2 IN BED. CALL LIGHT AND BEDSIDE TABLE ARE WITHIN EASY REACH.
--- NOTE | 2018-06-03 01:21 | NUR ---
PT RESTING IN BED WATCHING TV. NO NEEDS VOICED.
--- NOTE | 2018-06-03 03:19 | NUR ---
LYING IN BED, RESPIRATIONS EVEN AND UNLABORED. CALL LIGHT IN REACH, WILL CONTINUE WITH PLAN OF CARE.
[2018-06-03 04:00] VITALS: BP 150/82
--- NOTE | 2018-06-03 05:41 | NUR ---
PT RESTING IN BED WITH EYES CLOSED. NO DISTRESS NOTED. MARTINEZ CATH EMPTIED.
[2018-06-03 07:35] LABS: ALBUMIN 2.8 g/dL (3.4-5.0); ANION GAP 14.2 mmol/L (8-16); BILIRUBIN - TOTAL 0.5 mg/dL (0.2-1.3); CALCIUM 8.5 mg/dL (8.5-10.1); CARBON DIOXIDE 25.3 mmol/L (21.0-32.0); CREATININE - SERUM 1.5 mg/dL (0.6-1.3); MAGNESIUM - SERUM 2.2 mg/dL (1.8-2.4); PHOSPHOROUS 3.4 mg/dL (2.5-4.9); POTASSIUM - SERUM 3.5 mmol/L (3.5-5.1); PROTEIN - SERUM 6.8 g/dL (6.4-8.2)
[2018-06-03 07:36] LABS: BASOPHILS 0.4 % (0-2); EOSINOPHILS 3.6 % (0-7); HEMATOCRIT 31.9 % (42.0-54.0); HEMOGLOBIN 10.3 g/dL (13.5-17.5); IMMATURE GRANULOCYTES 0.2 % (0-5); LYMPHOCYTES 18.7 % (15-50); MCH 28.5 pg (26.0-34.0); MCHC 32.3 g/dL (31.0-37.0); MCV 88.1 fL (80.0-100.0); MEAN PLATELET VOLUME 9.7 fL (7.4-10.4); MONOCYTES 11.4 % (2-11); NEUTROPHILS 65.7 % (40-80); RBC 3.62 10x6/uL (4.20-6.10); RDW 15.8 % (11.5-14.5); WBC 8.5 10x3/uL (4.8-10.8)
[2018-06-03 07:39] LABS: PLATELET COUNT 195 10x3/uL (130-400)
[2018-06-03 08:45] VITALS: BP 132/104
--- NOTE | 2018-06-03 08:50 | NUR ---
AM MEDS GIVEN AT THIS TIME. ALSO REMOVED MARTINEZ CATHETER WITH TIP INTACT. DUE TO PT NOT MEETING CRITERIA FOR A MARTINEZ CATHETER. PT DENIES ANY NEEDS AT THIS TIME. CALL LIGHT IN REACH, NAD NOTED, WILL CONTINUE TO MONITOR.
--- NOTE | 2018-06-03 11:14 | NUR ---
CALLED PHARMACY AND SPOKE WITH RJ VEGAED HER THAT I NEED VANCOMYCIN FOR PT.
[2018-06-03 12:13] VITALS: BP 142/78
--- NOTE | 2018-06-03 13:05 | NUR ---
PT RESTING COMFORTABLY, VANCOMYCIN IVPB STILL INFUSING. NO CHANGES FROM PREVIOUS ASSESSMENT. PT DENIES ANY NEEDS AT THIS TIME. CALL LIGHT IN REACH, NAD NOTED, WILL CONTINUE TO MONITOR.
[2018-06-03 16:12] VITALS: BP 141/50
--- NOTE | 2018-06-03 19:20 | NUR ---
RESUME CARE. PT IN ROOM SITTING ON SIDE OF BED A&0 NO C/O OF PAIN OR DISTRESS AT THIS TIME CALL LIGHT IN REACH WILL CONT TO MONITOR
[2018-06-03 20:00] VITALS: BP 160/80
[2018-06-04] VITALS: BP 139/76
--- NOTE | 2018-06-04 05:44 | NUR ---
I CONCUR WITH ACCOUNTS RECEIVABLE COLLECTOR ASSESSMENT.
--- NOTE | 2018-06-04 08:00 | NUR ---
RECIEVED BEDSIDE REPORT. AM ROUNDS COMPLETED. PT VSS, AAO X4. RESP UNLABORED. ASSESSED PT SC LINE. PATENT, DRESSING C/D/I. DRAW AM LABS FROM LINE, FLUSHED AND CAPPED. PT C/O RASH ALL OVER HIS BACK. WILL NOTIFY PROVIDER. PT DENIES NEED FOR PAIN AT THIS TIME. CL IN REACH, BED IN LOW. WILL CTM.
[2018-06-04 08:15] VITALS: BP 148/68
[2018-06-04 08:37] LABS: BASOPHILS 0.2 % (0-2); EOSINOPHILS 3.1 % (0-7); HEMATOCRIT 31.2 % (42.0-54.0); HEMOGLOBIN 10.2 g/dL (13.5-17.5); IMMATURE GRANULOCYTES 0.2 % (0-5); LYMPHOCYTES 19.3 % (15-50); MCH 28.5 pg (26.0-34.0); MCHC 32.7 g/dL (31.0-37.0); MCV 87.2 fL (80.0-100.0); MEAN PLATELET VOLUME 9.5 fL (7.4-10.4); NEUTROPHILS 66.2 % (40-80); PLATELET COUNT 216 10x3/uL (130-400); RBC 3.58 10x6/uL (4.20-6.10); RDW 15.6 % (11.5-14.5); WBC 8.4 10x3/uL (4.8-10.8)
[2018-06-04 08:54] LABS: ANION GAP 13.9 mmol/L (8-16); CALCIUM 8.7 mg/dL (8.5-10.1); CARBON DIOXIDE 25.5 mmol/L (21.0-32.0); CREATININE - SERUM 1.6 mg/dL (0.6-1.3); POTASSIUM - SERUM 3.4 mmol/L (3.5-5.1)
[2018-06-04 11:14] VITALS: BP 157/87
[2018-06-04 15:09] VITALS: BP 143/78
--- NOTE | 2018-06-04 19:11 | NUR ---
RESUME CARE. PT IN RM SITTING IN CHAIR A&O IV RT SUBCA. SL NO C/O PAIN OR DISTRESS AT THIS TIME CALL LIGHT IN REACH WILL CONT TO MONITOR
[2018-06-04 20:00] VITALS: BP 166/80
--- NOTE | 2018-06-04 21:22 | NUR ---
LARGE RED AREA ON BACK APPEARS TO BE A RASH PT STATED IT FEELS LIKE A SUNBURN AND ITCHING BUT IT FEELS MUCH BETTER TO DAY ..... BREATH SOUNDS EVEN UNLABORED V/S WNL CALL LIGHT IN REACH WILL CONT TO ANIL
--- NOTE | 2018-06-04 23:36 | NUR ---
LYING IN BED WITH CALL LIGHT IN REACH. WILL CONTINUE TO MONITOR.
--- NOTE | 2018-06-05 00:06 | NUR ---
K+ 3.4 TREATED WITH 40MEQ PO
[2018-06-05 00:14] VITALS: BP 121/56
--- NOTE | 2018-06-05 01:10 | NUR ---
CHANGED CVL DRG .. DRG CDI
--- NOTE | 2018-06-05 02:32 | NUR ---
RIKI @ 100 IN RT SUBCALVIN
[2018-06-05 04:00] VITALS: BP 156/79
[2018-06-05 06:39] LABS: BASOPHILS 0.3 % (0-2); EOSINOPHILS 3.5 % (0-7); HEMATOCRIT 30.5 % (42.0-54.0); HEMOGLOBIN 9.9 g/dL (13.5-17.5); IMMATURE GRANULOCYTES 0.3 % (0-5); MCH 28.1 pg (26.0-34.0); MCHC 32.5 g/dL (31.0-37.0); MCV 86.6 fL (80.0-100.0); MEAN PLATELET VOLUME 9.6 fL (7.4-10.4); MONOCYTES 9.2 % (2-11); NEUTROPHILS 71.7 % (40-80); PLATELET COUNT 259 10x3/uL (130-400); RBC 3.52 10x6/uL (4.20-6.10); RDW 15.6 % (11.5-14.5); WBC 8.8 10x3/uL (4.8-10.8)
[2018-06-05 07:03] LABS: ANION GAP 18.1 mmol/L (8-16); CALCIUM 8.9 mg/dL (8.5-10.1); CARBON DIOXIDE 23.8 mmol/L (21.0-32.0); CREATININE - SERUM 1.7 mg/dL (0.6-1.3); POTASSIUM - SERUM 3.9 mmol/L (3.5-5.1)
--- NOTE | 2018-06-05 08:00 | NUR ---
RECIEVED BEDSIDE REPORT. AM ROUNDS COMPLETED. VSS, ASSESED AND FLUSHED CVL LINE. PT AAO X3. RESP. UNLABORED. AM MEDS ADMINISTERED. WILL CONTINUE POC. PT STATES HE IS AWAITING POSSIBLE DISCHARGE TODAY. WILL CTM. CL IN REACH BED IN [facility].
[2018-06-05 08:03] VITALS: BP 139/65
[2018-06-05] MEDS ORDERED: PULMICORT0.5 MG/21 UPD (08:10)
[2018-06-05] MEDS ORDERED: KLOR-CON 1010 MEQ PO (08:11)
--- NOTE | 2018-06-05 09:52 | MORECARE ---
CASE MANAGEMENT DISCHARGE SUMMARY PATIENT: KYARA GARCIA UNIT: [id number] ADM DATE: 05/27/18 AGE: 62 : 54 SEX: M ROOM/BED: D.2101 AUTHOR: ANUSHADOC PHYSICIAN: REFERRING PHYSICIAN: MARYURI PEARCE MD DATE OF SERVICE: 06/05/18 Discharge Plan Patient Name: KYARA GARCIA Facility: [facility]:[place] : 1955 Planned Disposition: Home Anticipated Discharge Date: 06/05/18 Discharge Date: Expected LOS: 9 Initial Reviewer: [email or web address] Initial Review Date: 06/02/2018 Generated: 06/05/18 10:52 am Comments DCP- Discharge Planning Updated by [email or web address]: Krystal Antonio on 06/02/18 2:[address] Patient Name: KYARA GARCIA Admission Status: ER Accout number: [id number] Admission Date: 05-27-2018 : 1955 Admission Diagnosis:SEPSIS, UNSPECIFIED ORGANISM Attending: MARYURI PEARCE Current LOS: 6 Anticipated DC Date: Planned Disposition: Home Primary Insurance: MEDICARE A & B Discharge Planning Comments: CM met with patient at bedside. Patient states he plans to return to his home in [place]. He states he lives alone other than his little dog. Patient states he does have a CPAP at home. Patient denies any home health services. Patient denies any discharge planning needs at this time. CM will continue to follow and assist as needed with discharge planning/ needs. Tumbling Machine Operator: Krystal Antonio DCP- Discharge Planning Updated by [id number]: Krystal Antonio on 05/29/18 2:[address] CM unable to get discharge assessment completed patient is still on ventilator intubated. No family available. CM tried to call contact but didn't get an answer. CM will continue to follow and assist as needed with discharge planning / needs. DCP- Discharge Planning Updated by [email or web address]: Krystal Antonio on 05/27/18 4:[address] CM ATTEMPTED TO VISIT WITH PATIENT FOR INTAKE ASSESSMENT. PATIENT IS CURRENTLY SEDATED ON VENTILATOR. NO FAMILY AVAILABLE AT THIS TIME. CM WILL TRY BACK AT A LATER TIME. DCPIA - Discharge Planning Initial Assessment Updated by [email or web address]: Krystal Antonio on 06/02/18 3:46 pm * Is the patient Alert and Oriented? Yes * How many steps to enter\exit or inside your home? 2 RAMP * PCP MANINDER HERNANDEZ * [facility]acy [facility] * Preadmission Environment Home Alone * ADLs Independent * Equipment CPAP * List name and contact numbers for known caregivers / representatives who currently or will assist patient after discharge: JOSEPH GARCIA - BROTHER- [phone] * Verbal permission to speak to the caregivers and representatives has been obtained from the patient. N/A * Community resources currently utilized None * Additional services required to return to the preadmission environment? No * Can the patient safely return to the preadmission environment? Yes * Has this patient been hospitalized within the prior 30 days at any hospital? No Last DP export: 06/02/18 3:01 p Patient Name: KYARA GARCIA Page [address]13 at 0952 All edits/amendments must be made on the electronic document DICTATION DATE: 06/05/18951 FIXER BOARDING ROOM: SHERRY 06/05/18951 RPT#: [id number] DC DATE: STATUS: ADM IN [facility] [address] [place] [address] END OF REPORT
--- NOTE | 2018-06-05 10:00 | MORECARE ---
CASE MANAGEMENT DISCHARGE SUMMARY PATIENT: KYARA GARCIA UNIT: [id number] ADM DATE: 05/27/18 AGE: 62 : 54 SEX: M ROOM/BED: D.2101 AUTHOR: ANUSHA,DOC PHYSICIAN: REFERRING PHYSICIAN: MAYRURI PEARCE MD DATE OF SERVICE: 06/05/18 Discharge Plan Patient Name: KYARA GARCIA Facility: [facility]:[place] : 1955 Planned Disposition: Home Anticipated Discharge Date: 06/05/18 Discharge Date: Expected LOS: 9 Initial Reviewer: [email or web address] Initial Review Date: 06/02/2018 Generated: 06/05/18 11:00 am Comments DCP- Discharge Planning Updated by [email or web address]: Lenard Orozco on 06/05/18 8:[address] Patient Name: KYARA GARCIA Encounter No: [id number] : 1955 Primary Insurance: MEDICARE A & B Anticipated DC Date: 06-05-2018 Planned Disposition: Home DCP follow-up note: CM RECEIVED DISCHARGE ORDER, MET WITH PT IN ROOM TO DISCUSS DISCHARGE NEEDS AND PLANNING. CM DISCUSSED AVAILABILITY OF HOME HEALTH, REHAB SERVICES AND MEDICAL EQUIPMENT. PT DENIES DISCHARGE NEEDS AND INFORMED CM THAT HE CANNOT GET A RIDE UNTIL TOMORROW MORNING AND IS FROM [place]. PT DENIES HAVING ANY OTHER FRIENDS OR FAMILY THAT HE CAN CALL TO PICK HIM UP AND THAT HE HAS NO FUNDS TO PURCHASE TRANSPORT HOME TODAY. PT IN AGREEMENT WITH DISCHARGE IF HE CAN "JUST GET HOME". PT REPORTS HE IS ABLE TO GET INTO THE HOUSE INDEPENDENTLY AND HAS UTILITIES AT HOME. IMPORTANT MESSAGE FROM MEDICARE PROVIDED AND EXPLAINED. CM CALLED [employer], , SPOKE TO DISPATCH AND OBTAINED [employer] TRANSPORTATION QUOTE OF $200 FOR TRANSPORT OF PT TO HIS HOME. CM DISCUSSED CIRCUMSTANCES WITH CM CARETAKER RESORT JA WHO AUTHORIZED TRANSPORTATION [facility]PENSE [facility] [employer]. CM NOTIFIED PT WHO IS IN AGREEMENT WITH DISCHARGE PLAN. WHEN READY FOR DISCHARGE HOME, CALL [employer], , REQUEST TRANSPORT HOME ON CASE MANAGEMENT VOUCHER, AUTHORIZED BY CM CARETAKER RESORT ANABELL PER[employer], $200, ONE PERSON TRANSPORT FROM HOSPITAL TO HOME AT [address] [place] [address]. [id number]. Lenard Orozco, CASE MANAGEMENT DCP- Discharge Planning Updated by [email or web address]: Krystal Antonio on 06/02/18 2:[address] Patient Name: KYARA GARCIA Admission Status: ER Accout number: [id number] Admission Date: 05-27-2018 : 1955 Admission Diagnosis:SEPSIS, UNSPECIFIED ORGANISM Attending: MARYURI PEARCE Current LOS: 6 Anticipated DC Date: Planned Disposition: Home Primary Insurance: MEDICARE A & B Discharge Planning Comments: CM met with patient at bedside. Patient states he plans to return to his home in [place]. He states he lives alone other than his little dog. Patient states he does have a CPAP at home. Patient denies any home health services. Patient denies any discharge planning needs at this time. CM will continue to follow and assist as needed with discharge planning/ needs. Rn Imcu: Krystal Antonio DCP- Discharge Planning Updated by [email or web address]: Krystal Antonio on 05/29/18 2:[address] CM unable to get discharge assessment completed patient is still on ventilator intubated. No family available. CM tried to call contact but didn't get an answer. CM will continue to follow and assist as needed with discharge planning / needs. DCP- Discharge Planning Updated by [email or web address]: Krystal Antonio on 05/27/18 4:[address] CM ATTEMPTED TO VISIT WITH PATIENT FOR INTAKE ASSESSMENT. PATIENT IS CURRENTLY SEDATED ON VENTILATOR. NO FAMILY AVAILABLE AT THIS TIME. CM WILL TRY BACK AT A LATER TIME. DCPIA - Discharge Planning Initial Assessment Updated by [email or web address]: Krystal Antonio on 06/02/18 3:46 pm * Is the patient Alert and Oriented? Yes * How many steps to enter\\exit or inside your home? 2 RAMP * PCP MANINDER HERRERA * [facility]acy [facility] * Preadmission Environment Home Alone * ADLs Independent * Equipment CPAP * List name and contact numbers for known caregivers / representatives who currently or will assist patient after discharge: JOSEPH GARCIA - BROTHER- [phone] * Verbal permission to speak to the caregivers and representatives has been obtained from the patient. N/A * Community resources currently utilized None * Additional services required to return to the preadmission environment? No * Can the patient safely return to the preadmission environment? Yes * Has this patient been hospitalized within the prior 30 days at any hospital? No Coverage Notice Reviewer: [id number] Leobardo Orozco Notice Issued Date-Time: 06/05/2018 9:35 Notice Type: IM Discharge Notice Notice Delivered To: Patient Relationship to Patient: Casing Material Weigher Name: Delivery Method: HAND - Hand Delivered Eulalia Days: Prior Verbal Notification: Recipient Understood Notice: Yes Recipient Signature: Yes Med Rec Note Co-signed by Attending: Coverage Notice Comment: Last DP export: 06/05/18 8:52 a Patient Name: KYARA GARCIA Page 6[address]16 at 1000 All edits/amendments must be made on the electronic document DICTATION DATE: 06/05/18 1000 SALES CLOSER: SHERRY 06/05/18 1000 RPT#: [id number] DC DATE: STATUS: ADM IN [facility] [address] [place] [address] END OF REPORT
--- NOTE | 2018-06-05 10:18 | MORECARE ---
CASE MANAGEMENT DISCHARGE SUMMARY PATIENT: KYARA GARCIA UNIT: [id number] ADM DATE: 05/27/18 AGE: 62 : 53 SEX: M ROOM/BED: D.2100 AUTHOR: ANUSHA,DOC PHYSICIAN: REFERRING PHYSICIAN: MARYURI PEARCE MD DATE OF SERVICE: 06/05/18 Discharge Plan Patient Name: KYARA GARCIA Facility: [facility]:[place] : 1955 Planned Disposition: Home Anticipated Discharge Date: 06/05/18 Discharge Date: Expected LOS: 9 Initial Reviewer: [id number] Initial Review Date: 06/02/2018 Generated: 06/05/18 11:18 am Comments DCP- Discharge Planning Updated by [email or web address]: Lenard Orozco on 06/05/18 9:[address] Patient Name: KYARA GARCIA Encounter No: [id number] : 1955 Primary Insurance: MEDICARE A & B Anticipated DC Date: 06-05-2018 Planned Disposition: Home DCP follow-up note: CM RECEIVED DISCHARGE ORDER, MET WITH PT IN ROOM TO DISCUSS DISCHARGE NEEDS AND PLANNING. CM DISCUSSED AVAILABILITY OF HOME HEALTH, REHAB SERVICES AND MEDICAL EQUIPMENT. PT DENIES DISCHARGE NEEDS AND INFORMED CM THAT HE CANNOT GET A RIDE UNTIL TOMORROW MORNING AND IS FROM [place]. PT DENIES HAVING ANY OTHER FRIENDS OR FAMILY THAT HE CAN CALL TO PICK HIM UP AND THAT HE HAS NO FUNDS TO PURCHASE TRANSPORT HOME TODAY. PT IN AGREEMENT WITH DISCHARGE IF HE CAN "JUST GET HOME". PT REPORTS HE IS ABLE TO GET INTO THE HOUSE INDEPENDENTLY AND HAS UTILITIES AT HOME. IMPORTANT MESSAGE FROM MEDICARE PROVIDED AND EXPLAINED. CM CALLED [employer], , SPOKE TO DISPATCH AND OBTAINED [employer] TRANSPORTATION QUOTE OF $200 FOR TRANSPORT OF PT TO HIS HOME. CM DISCUSSED CIRCUMSTANCES WITH CM STEEPING PRESS OPERATOR JA WHO AUTHORIZED TRANSPORTATION [facility]ENSE [facility] [employer]. CM NOTIFIED PT WHO IS IN AGREEMENT WITH DISCHARGE PLAN. PT REPORTS HAVING CPAP AND NEBULIZER AT HOME WITH NO MEDICAL EQUIPMENT PROVIDER COMPANY PREFERENCE. WHEN READY FOR DISCHARGE HOME, CALL [employer], , REQUEST TRANSPORT HOME ON CASE MANAGEMENT VOUCHER, AUTHORIZED BY CM STEEPING PRESS OPERATOR ANABE[employer], $200, ONE PERSON TRANSPORT FROM HOSPITAL TO HOME AT [address] [place] [address], [place] [address]. Lenard Orozco, CASE MANAGEMENT DCP- Discharge Planning Updated by [id number]: Krystal Antonio on 06/02/18 2:[address] Patient Name: KYARA GARCIA Admission Status: ER Accout number: [id number] Admission Date: 05-27-2018 : 1955 Admission Diagnosis:SEPSIS, UNSPECIFIED ORGANISM Attending: MARYURI PEARCE Current LOS: 6 Anticipated DC Date: Planned Disposition: Home Primary Insurance: MEDICARE A & B Discharge Planning Comments: CM met with patient at bedside. Patient states he plans to return to his home in [place]. He states he lives alone other than his little dog. Patient states he does have a CPAP at home. Patient denies any home health services. Patient denies any discharge planning needs at this time. CM will continue to follow and assist as needed with discharge planning/ needs. Machine Scallop Cutter: Krystal Antonio DCP- Discharge Planning Updated by [email or web address]: Krystal Antonio on 05/29/18 2:[address] CM unable to get discharge assessment completed patient is still on ventilator intubated. No family available. CM tried to call contact but didn't get an answer. CM will continue to follow and assist as needed with discharge planning / needs. DCP- Discharge Planning Updated by [id number]: Krystal Antonio on 05/27/18 4:[address] CM ATTEMPTED TO VISIT WITH PATIENT FOR INTAKE ASSESSMENT. PATIENT IS CURRENTLY SEDATED ON VENTILATOR. NO FAMILY AVAILABLE AT THIS TIME. CM WILL TRY BACK AT A LATER TIME. DCPIA - Discharge Planning Initial Assessment Updated by [email or web address]: Lenard Orozco on 06/05/18 10:10 am * Is the patient Alert and Oriented? Yes * How many steps to enter\\exit or inside your home? 2 RAMP * PCP MANINDER HERNANDEZ * [facility]acy [facility] * Preadmission Environment Home Alone * ADLs Independent * Equipment CPAP Nebulizer * List name and contact numbers for known caregivers / representatives who currently or will assist patient after discharge: JOSEPH GARCIA - BROTHER- [phone] * Verbal permission to speak to the caregivers and representatives has been obtained from the patient. N/A * Community resources currently utilized None * Additional services required to return to the preadmission environment? No * Can the patient safely return to the preadmission environment? Yes * Has this patient been hospitalized within the prior 30 days at any hospital? No Coverage Notice Reviewer: [id number] Leobardo Orozco Notice Issued Date-Time: 06/05/2018 9:35 Notice Type: IM Discharge Notice Notice Delivered To: Patient Relationship to Patient: Terrazzo Polisher Name: Delivery Method: HAND - Hand Delivered Eulalia Days: Prior Verbal Notification: Recipient Understood Notice: Yes Recipient Signature: Yes Med Rec Note Co-signed by Attending: Coverage Notice Comment: Last DP export: 06/05/18 9:00 a Patient Name: KYARA GARCIA Page 48622 at 1018 All edits/amendments must be made on the electronic document DICTATION DATE: 06/05/18 1017 HEAD OF PHYSICS: SHERRY 06/05/18 1017 RPT#: [id number] DC DATE: STATUS: ADM IN [facility] [address] [place] [address] END OF REPORT
--- NOTE | 2018-06-05 10:54 | NUR ---
PT STATES HE DOES NOT HAVE A CLOTH TO WEAR HOME. CALLED [employer] TO GET PATIENT HOSPITAL SCRUBS. PT CURRETLY AWAITING DISCHARGE. WILL CTM.
--- NOTE | 2018-06-05 11:06 | NUR ---
REMOVE PT CVL LINE, TIP INTACT, NO DISCOMFORT NOTED. NO BLEEDING NOTED. PT TOLERATED WELL. COVERED THE SITE WITH 4X4 GAUZE AND TAPED. READ DISCHARGE INSTRUCTION TO PT. PT VERBALIZED UNDERSTANDING. PT IS GOING HOME WITH ALL OF HIS BNELONGINGS. COUNTY MANAGER WILL GET A VAN TO PICK HIM UP.
--- NOTE | 2018-06-05 11:36 | MORECARE ---
CASE MANAGEMENT DISCHARGE SUMMARY PATIENT: KYARA GARCIA UNIT: [id number] ADM DATE: 05/27/18 AGE: 62 : 54 SEX: M ROOM/BED: D.210 AUTHOR: ANUSHA,DOC PHYSICIAN: REFERRING PHYSICIAN: MARYURI PEARCE MD DATE OF SERVICE: 06/05/18 Discharge Plan Patient Name: KYARA GARCIA Facility: [facility]:[place] : 1955 Planned Disposition: Home Anticipated Discharge Date: 06/05/18 Discharge Date: Expected LOS: 9 Initial Reviewer: [id number] Initial Review Date: 06/02/2018 Generated: 06/05/18 12:36 pm Comments DCP- Discharge Planning Updated by [email or web address]: Lenard Orozco on 06/05/18 10:[address] Patient Name: KYARA GARCIA Encounter No: [id number] : 1955 Primary Insurance: MEDICARE A & B Anticipated DC Date: 06-05-2018 Planned Disposition: Home DCP follow-up note: CM RECEIVED DISCHARGE ORDER, MET WITH PT IN ROOM TO DISCUSS DISCHARGE NEEDS AND PLANNING. CM DISCUSSED AVAILABILITY OF HOME HEALTH, REHAB SERVICES AND MEDICAL EQUIPMENT. PT DENIES DISCHARGE NEEDS AND INFORMED CM THAT HE CANNOT GET A RIDE UNTIL TOMORROW MORNING AND IS FROM [place]. PT DENIES HAVING ANY OTHER FRIENDS OR FAMILY THAT HE CAN CALL TO PICK HIM UP AND THAT HE HAS NO FUNDS TO PURCHASE TRANSPORT HOME TODAY. PT IN AGREEMENT WITH DISCHARGE IF HE CAN "JUST GET HOME". PT REPORTS HE IS ABLE TO GET INTO THE HOUSE INDEPENDENTLY AND HAS UTILITIES AT HOME. IMPORTANT MESSAGE FROM MEDICARE PROVIDED AND EXPLAINED. CM CALLED [employer], , SPOKE TO DISPATCH AND OBTAINED [employer] TRANSPORTATION QUOTE OF $200 FOR TRANSPORT OF PT TO HIS HOME. CM DISCUSSED CIRCUMSTANCES WITH CM BLUEPRINT TRIMMER JA WHO AUTHORIZED TRANSPORTATION [facility]ENSE [facility] [employer]. CM NOTIFIED PT WHO IS IN AGREEMENT WITH DISCHARGE PLAN. PT REPORTS HAVING CPAP AND NEBULIZER AT HOME WITH NO MEDICAL EQUIPMENT PROVIDER COMPANY PREFERENCE. WHEN READY FOR DISCHARGE HOME, CALL [employer], , REQUEST TRANSPORT HOME ON CASE MANAGEMENT VOUCHER, AUTHORIZED BY CM BLUEPRINT TRIMMER ANABELL [employer], $200, ONE PERSON TRANSPORT FROM HOSPITAL TO HOME AT [address] [place] [address]. Lenard Orozco, CASE MANAGEMENT Appended by Lenard Orozco on 06/05/2018 11:33 OIL PIPE INSPECTOR HELPER: BEDSIDE NURSE NOTIFIED CM THAT PT IS READY TO GO HOME, CM SPOKE TO PT WHO IS IN AGREEMENT WITH DISCHARGE TRANSPORTATION [facility]. CM CALLED [employer], , REQUESTED TRANSPORT HOME ON CASE MANAGEMENT VOUCHER, AUTHORIZED BY CM BLUEPRINT TRIMMER ANABELL PERES, $200, ONE PERSON TRANSPORT FROM HOSPITAL TO HOME AT [address] [place] [address]. [employer] ON THE WAY TO REGISTERED MEDICAL ASSISTANT PT. Lenard Orozco, NESTOR MANAGEMENT DCP- Discharge Planning Updated by [email or web address]: Krystal Antonio on 06/02/18 2:[address] Patient Name: KYARA GARCIA Admission Status: ER Accout number: [id number] Admission Date: 05-27-2018 : 1955 Admission Diagnosis:SEPSIS, UNSPECIFIED ORGANISM Attending: MARYURI PEARCE Current LOS: 6 Anticipated DC Date: Planned Disposition: Home Primary Insurance: MEDICARE A & B Discharge Planning Comments: CM met with patient at bedside. Patient states he plans to return to his home in [place]. He states he lives alone other than his little dog. Patient states he does have a CPAP at home. Patient denies any home health services. Patient denies any discharge planning needs at this time. CM will continue to follow and assist as needed with discharge planning/ needs. Self Propelled Mining Machine Operator: Krystal Antonio DCP- Discharge Planning Updated by [id number]: Krystal Antonio on 05/29/18 2:[address] CM unable to get discharge assessment completed patient is still on ventilator intubated. No family available. CM tried to call contact but didn't get an answer. CM will continue to follow and assist as needed with discharge planning / needs. DCP- Discharge Planning Updated by [email or web address]: Krystal Antonio on 05/27/18 4:[address] CM ATTEMPTED TO VISIT WITH PATIENT FOR INTAKE ASSESSMENT. PATIENT IS CURRENTLY SEDATED ON VENTILATOR. NO FAMILY AVAILABLE AT THIS TIME. CM WILL TRY BACK AT A LATER TIME. DCPIA - Discharge Planning Initial Assessment Updated by [email or web address]: Lenard Orozco on 06/05/18 10:10 am * Is the patient Alert and Oriented? Yes * How many steps to enter\\exit or inside your home? 2 RAMP * PCP MANINDER HERNANDEZ * [facility]acy [facility] * Preadmission Environment Home Alone * ADLs Independent * Equipment CPAP Nebulizer * List name and contact numbers for known caregivers / representatives who currently or will assist patient after discharge: JOSEPH GARCIA - BROTHER- [phone] * Verbal permission to speak to the caregivers and representatives has been obtained from the patient. N/A * Community resources currently utilized None * Additional services required to return to the preadmission environment? No * Can the patient safely return to the preadmission environment? Yes * Has this patient been hospitalized within the prior 30 days at any hospital? No Coverage Notice Reviewer: [id number] - Lenard Orozco Notice Issued Date-Time: 06/05/2018 9:35 Notice Type: IM Discharge Notice Notice Delivered To: Patient Relationship to Patient: K 9 Police Officer Name: Delivery Method: HAND - Hand Delivered Eulalia Days: Prior Verbal Notification: Recipient Understood Notice: Yes Recipient Signature: Yes Med Rec Note Co-signed by Attending: Coverage Notice Comment: Last DP export: 06/05/18 9:18 a Patient Name: KYARA GARCIA Page 99434 at 1136 All edits/amendments must be made on the electronic document DICTATION DATE: 06/05/181135 REAL ESTATE ANALYST: SHERRY 06/05/18 1136 RPT#: [id number] DC DATE: STATUS: ADM IN [facility] [address] [place] [address] END OF REPORT
== END 2018-06-05 11:41 | disposition home or self-care (01) | DRG 871 ==
LOC: D.ER 23:06 → D.ICU 05-27 01:55 → D.M2 05-27 01:55
PROVIDERS: Emergency Medicine; Family Medicine; Internal Medicine Nephrology; Internal Medicine Pulmonary Disease; ADMIT Family Medicine
PROC: 05H533Z Insertion of Infusion Device into Right Subclavian Vein, Percutaneous Approach (ICD-10-PCS; principal; 2018-05-27)
PROC: 5A1945Z Respiratory Ventilation, 24-96 Consecutive Hours (ICD-10-PCS; 2018-05-27)
DX: A41.9 Sepsis, unspecified organism (principal); J18.9 Pneumonia, unspecified organism; J96.01 Acute respiratory failure with hypoxia; J96.02 Acute respiratory failure with hypercapnia; E87.2 Acidosis; I42.9 Cardiomyopathy, unspecified; J44.1 Chronic obstructive pulmonary disease with (acute) exacerbation; J44.0 Chronic obstructive pulmonary disease with (acute) lower respiratory infection; G47.33 Obstructive sleep apnea (adult) (pediatric); G40.909 Epilepsy, unspecified, not intractable, without status epilepticus; I11.0 Hypertensive heart disease with heart failure; I50.9 Heart failure, unspecified

== ENCOUNTER 2019-01-05 12:40 | Emergency (ER) | payer MEDICARE ==
[~2019-01-05] VITALS: Ht 182.9 cm; Wt 109.1 kg
[~2019-01-05 12:40] MED LIST changes: +KLOR-CON 1010 MEQ PO; +PULMICORT0.5 MG/21 UPD
[2019-01-05 12:42] VITALS: Ht 182.9 cm; Wt 109.1 kg
[2019-01-05 13:32] LABS: INR 1.23 (0.85-1.17)
[2019-01-05 13:37] LABS: ALBUMIN 3.6 g/dL (3.4-5.0); ALKALINE PHOSPHATASE 104 U/L (46-116); ALT (SGPT) 27 U/L (10-68); BILIRUBIN - TOTAL 0.33 mg/dL (0.2-1.3); CALC OSMOLALITY 282 mosm/kg (275-300); CALCIUM 9.5 mg/dL (8.5-10.1); CARBON DIOXIDE 19.7 mmol/L (21.0-32.0); CHLORIDE - SERUM 105 mmol/L (98-107); CREATININE - SERUM 2.2 mg/dL (0.6-1.3); GLUCOSE 107 mg/dL (74-106); POTASSIUM - SERUM 4.6 mmol/L (3.5-5.1); PROTEIN - SERUM 7.7 g/dL (6.4-8.2); SODIUM 138 mmol/L (136-145); UREA NITROGEN 31 mg/dL (7-18); eGFR NON AFRICAN AMERICAN 32 mL/min (90-120)
[2019-01-05 13:51] LABS: CKMB 3.6 U/L (0.0-3.6); CREATINE KINASE 220 UL (21-232); MAGNESIUM - SERUM 1.8 mg/dL (1.8-2.4); THYROID STIMULATING HORMONE 1.12 uIU/mL (0.36-3.74)
[2019-01-05 13:53] LABS: TROPONIN-I < 0.017 ng/mL (0.000-0.060)
[2019-01-05 14:15] LABS: BASOPHILS 0.7 % (0-2); EOSINOPHILS 1.1 % (0-7); HEMATOCRIT 29.4 % (42.0-54.0); HEMOGLOBIN 9.8 g/dL (13.5-17.5); IMMATURE GRANULOCYTES 0.2 % (0-5); LYMPHOCYTES 18.5 % (15-50); MCH 29.6 pg (26.0-34.0); MCHC 33.3 g/dL (31.0-37.0); MCV 88.8 fL (80.0-100.0); MEAN PLATELET VOLUME 8.9 fL (7.4-10.4); MONOCYTES 10.6 % (2-11); NEUTROPHILS 68.9 % (40-80); RBC 3.31 10x6/uL (4.20-6.10); RDW 14.7 % (11.5-14.5); WBC 9.2 10x3/uL (4.8-10.8)
[2019-01-05 14:29] LABS: PLATELET COUNT 312 10x3/uL (130-400)
[2019-01-05 17:39] VITALS: BP 134/61
== END 2019-01-05 15:46 | disposition home or self-care (01) ==
LOC: D.ER 12:40
PROVIDERS: Emergency Medicine
DX: I95.2 Hypotension due to drugs (principal)